=== PATIENT | female | born 1985 | race Caucasian/White ===

== ENCOUNTER 2022-01-18 22:54 | Emergency (ER) | payer BC, SELFPAY ==
[2022-01-18 22:59] VITALS: BP 102/69; PULSE 66; RESP 18; TEMP 36.4; O2SAT 99; BMI 26.8
--- NOTE | 2022-01-19 00:29 | CRLHL7_ITS ---
For Patients: As a result of the Century Cures Act, medical imaging exams and procedure reports are released immediately into your electronic medical record. You may view this report before your referring provider. If you have questions, please contact your health care provider. HISTORY: Bleeding in . Unsure of LMP. COMPARISON: None available of this gestation. TECHNIQUE: Transvaginal ultrasound examination of the early was performed. FINDINGS: A single intrauterine gestational sac is seen without any identifiable structures. A good double decidual sac sign is seen. The mean sac diameter measurement of 0.6 cm gives an estimated gestational age of 5 weeks 1 day with an estimated date of delivery of 09/20/2022. Since a pole cannot be identified, cardiac activity cannot be verified. Consider follow-up ultrasound to confirm viability. A Caesarean section scar is seen in the anterior lower uterine segment. There is no sign of free fluid in the pelvis. A thick-walled left ovarian cyst is present consistent with a corpus luteum cyst of , measuring 1.0 x 1.0 x 0.4 centimeters. The ovaries are normal in size. The right ovary measures 3.2 x 1.1 x 1.5 centimeters. The left ovary measures 2.6 x 1.7 x 1.6 centimeters. IMPRESSION: Single intrauterine gestational sac seen without identifiable parts, with estimated age of 5 weeks 1 day. Consider follow-up ultrasound to confirm viability. Dictated by Yoandy Mcdonald MD @ 01/19/2022 1:36:06 AM (Electronically Signed)
[2022-01-19 00:51] LABS: Basophils Absolute Auto 0.02 K/uL (0.00-0.30); Basophils Percent Auto 0.2 % (0.0-3.0); Eosinophils Absolute Auto 0.16 K/uL (0.00-0.50); Eosinophils Percent Auto 1.8 % (0.0-7.0); Hematocrit 34.5 % (33.0-51.0); Hemoglobin* 11.4 gm/dL (12.0-16.0); Immature Granulocytes Abs Auto 0.01 K/uL (0.00-0.30); Lymphocytes Absolute Auto 3.75 K/uL (0.90-2.90); Lymphocytes Percent Auto 41.4 % (20-44); Mean Corpuscular HGB Conc 33 gm/dL (32-36); Mean Corpuscular Hemoglobin 29 pg (26-34); Mean Corpuscular Volume 87 fL (80-100); Monocytes Percent Auto 5.6 % (0.0-11.0); Neutrophils Absolute Auto 4.61 K/uL (1.7-7.0); Neutrophils Percent Auto 50.9 % (42.0-72.0); Platelet Count* 329 K/uL (140-440); RDW Coefficient of Variation % 13.8 % (11.5-15.5); Red Blood Count 3.97 m/uL (4.00-5.20); White Blood Count* 9.06 K/uL (4.50-11.00)
--- NOTE | 2022-01-19 01:18 | ED_ITS ---
HPI - General Date Seen: 01/19/22 Stated complaint: 8 weeks with bleeding Time Seen by Provider: 01/19/22 00:11 Source: patient and family Mode of arrival: ambulatory Limitations: language barrier (She has a friend interpreting for her.) History of Present Illness HPI Narrative: Patient is eight half weeks by an accurate LMP giving her an EDC of 08/27/2022. She has not seen a doctor for this yet. Today she was in the shower and noticed a trickle of blood down her leg. She has had no abdominal pain. She has passed no clots or tissue. The bleeding has been minimal since it started. She is a . Her PCP is at the [facility] but she does not remember her name. Patient : Yes Expected Date of Delivery: 08/27/22 Number of Weeks : Eight Related Data : 6 Para: 5 Total number of abortions (spontaneous and elective): 2 Home Medications Medication Instructions Recorded Confirmed 01/18/22 folic acid 01/18/22 Allergies Allergy/AdvReac Type Severity Reaction Status Date / Time No Known Drug Allergies Allergy Verified 01/18/22 23:04 PFSH PFS Social History Smoking Status: Never smoker How often do you have a drink containing alcohol: never AUDIT-C Alcohol total score: 0 Non-prescribed substance use: denies use service: No Exam Narrative: Exam Narrative: Lungs are clear. Heart is regular rate rhythm without murmur. Abdomen is soft and nontender. Normal bowel sounds. No organomegaly. Const: Vital Signs, click to edit/add: Vital Signs - 24 hr 01/18/22 22:59 Temperature 97.6 F Pulse Rate [Right Pulse Oximeter] 66 Respiratory Rate 18 Blood Pressure [Le ft Upper Arm] 102/69 Pulse Oximetry 99 Course Course Hospital Course: We were unable to get a quantitative HCG as the machine apparently is broken. The blood will be sent to [employer] and run. Ultrasound shows a gestational sac at closer to five weeks gestation than nine weeks gestation. She did have some light bleeding here in the department. No pain. Vital Signs Vital signs: Initial Vital Signs Temperature 97.6 F 01/18/22 22:59 Temperature Source Temporal Artery Scan 01/18/22 22:59 Pulse Rate 66 01/18/22 22:59 Respiratory Rate 18 01/18/22 22:59 Blood Pressure 102/69 01/18/22 22:59 Blood Pressure Mean 80 01/18/22 22:59 Pulse Oximetry 99 01/18/22 22:59 Oxygen Delivery Method 01/18/22 22:59 Vital Signs Temperature 97.6 F 01/18/22 22:59 Pulse Rate 66 01/18/22 22:59 Respiratory Rate 18 01/18/22 22:59 Blood Pressure 102/69 01/18/22 22:59 Pulse Oximetry 99 01/18/22 22:59 Temperature 97.6 F 01/18/22 22:59 Pulse Rate 66 01/18/22 22:59 Respiratory Rate 18 01/18/22 22:59 Blood Pressure 102/69 01/18/22 22:59 Pulse Oximetry 99 01/18/22 22:59 MDM - OB/Uterine Contractions Lab Data Labs: Lab Results 01/19/22 Range/Units 00:45 Blood Type A Positive Discharge Plan Discharge Clinical Impression: First trimester bleeding Patient Disposition: Home, Self-Care Condition: Stable Additional Instructions: No intercourse. Follow-up in three days for a repeat hCG. You may want to push your ultrasound back a couple of weeks. Return to the ER for heavy bleeding or severe pain. Prescriptions: No Action 0RF folic acid 0RF Stand Alone Forms: [employer] Info Instructions Procedures Perimortem Number of Weeks : Eight
[2022-01-19 02:24] LABS: Slide Review Reflex No
== END 2022-01-19 02:14 | disposition home or self-care (01) ==
PROVIDERS: Emergency Provider Family Medicine
DX: O20.9 Hemorrhage in early pregnancy, unspecified (principal)
CPT/HCPCS: 36415; 76817; 84702; 85025; 86900; 86901; 99283

== ENCOUNTER 2022-01-24 13:59 | Outpatient (CLI) | payer BC, SELFPAY ==
[2022-01-24 20:55] LABS: HCG Quantitative* 34.24 mIU/mL
== END 2022-01-24 14:00 | disposition home or self-care (01) ==
LOC: NFLDREF 14:08
PROVIDERS: Visit Provider Family Medicine
DX: O20.9 Hemorrhage in early pregnancy, unspecified (principal)
CPT/HCPCS: 84702

== ENCOUNTER 2023-01-25 07:51 | Outpatient (CLI) | payer OTHER, SELFPAY ==
--- NOTE | 2023-01-25 08:15 | CRLHL7_ITS ---
For Patients: As a result of the Century Cures Act, medical imaging exams and procedure reports are released immediately into your electronic medical record. You may view this report before your referring provider. If you have questions, please contact your health care provider. INDICATION: , spotting TECHNIQUE: Ultrasound OB pelvis transvaginal. Real-time hathaway-scale imaging of the pelvis was performed. COMPARISON: None FINDINGS: The uterus is anteverted with an intrauterine gestational sac. An embryo is identified which has a crown-rump length of 6 millimeters which corresponds to 6 weeks 3 days. No cardiac activity seen. Maternal right ovary unremarkable. Maternal left ovary contains a corpus luteum measuring 1.2 centimeters. IMPRESSION: Single intrauterine gestation with a crown-rump length of 6 millimeters without cardiac activity. These findings are suspicious for although not diagnostic of failure. Recommend correlation with serial quantitative beta HCG and as clinically appropriate follow-up ultrasound in 7-10 days to reassess viability. Dictated by Indra Petty MD @ 01/25/2023 9:52:08 AM (Electronically Signed)
== END 2023-01-25 07:52 | disposition home or self-care (01) ==
LOC: US 07:54
PROVIDERS: Visit Provider Registered Nurse
DX: O20.9 Hemorrhage in early pregnancy, unspecified (principal)
CPT/HCPCS: 76817

== ENCOUNTER 2023-03-03 10:35 | Outpatient (CLI) | payer OTHER, SELFPAY | END 2023-03-03 10:36 | disposition home or self-care (01) | PROVIDERS: Visit Provider Obstetrics & Gynecology | DX: N96 Recurrent pregnancy loss (principal) | CPT/HCPCS: 82232; 83001; 84146; 84439; 84443; 85610; 85613; 85730; 86147; 88262 ==

== ENCOUNTER 2023-05-31 15:22 | Outpatient (CLI) | payer OTHER, SELFPAY | END 2023-05-31 15:23 | disposition home or self-care (01) | PROVIDERS: PCP Family Medicine; Visit Provider Family Medicine | DX: D64.9 Anemia, unspecified (principal); R53.83 Other fatigue | CPT/HCPCS: 80053; 80061; 82607; 82728; 82977; 84443 ==

== ENCOUNTER 2023-06-02 08:06 | Outpatient (CLI) | payer OTHER, SELFPAY | END 2023-06-02 08:07 | disposition home or self-care (01) | LOC: NFLDREF 08:08 | PROVIDERS: PCP Family Medicine; Visit Provider Family Medicine | DX: R74.8 Abnormal levels of other serum enzymes (principal) | CPT/HCPCS: 86803; 87340 ==

== ENCOUNTER 2023-12-13 07:07 | Outpatient (CLI) | payer OTHER, SELFPAY ==
--- OUTSIDE RECORDS SUMMARY | 2023-12-13 07:10 | XMS_ITS | Data Portability ---
Author Organization CLAUDE - Olivia coleman [facility] Address [address] [place] [address] [place] [address] Assessment No assessment recorded. Plan of Treatment Reminders Order Date Submit Date Provider Last Modified By Organization Details Last Modified Time Details Appointments None record ed. Lab pap, LB + HR HPV 021 04/21/20 21 CYNDI Not available 13:51:58 Referral None record ed. Procedures None record ed. Surgeries None record ed. Imaging None record ed. Medication Orders None record ed. Patient TargetsNo targets recorded. 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 Referral for Abnormal cervical Papanicolaou smear Referral to complete JUNIE paperwork prior to referral to [facility] for colposcopy Referring Physician: Rahda [facility], Encounter Date: 05/12/2021 Consultant Dietitian Referral for Ab normal cervical Papanicolaou smear JUNIE Referral to [facility] for Colposcopy Gibraltarian speaking Referring Physician: Radha [facility], Encounter Date: 05/12/2021 Results Created Date Observation Date Name Description Value Unit Range Abnormal Flag LastModifiedBy Organization Detail LastModifiedTime 04/21/20 21 04/21/2021 pap, LB + HR HPV HPV type 16 positi ve negati ve abnormal Not Available [facility] [address], [place], [address], 04/26/2021 13:08:30 04/21/2004/21/2021 pap, LB + HR HPV cytology unsati sfacto ry abnormal Not Available Not Available 05/11/20 14:20:46 Result Notes None recorded. Problems Name Status Onset Date Resolution Date Notes Provider Name and Address Organization Details Recorded Time Polyp of cervix Active Radha Conway NP [address] [place], [address], [facility] [employer] 04/21/2021 18:31:23 Problem Notes None recorded. Procedures Surgical History Date Name Laterality Status Provider Name and Address Organization Details Recorded Time IUD Removal completed Radha Conway NP [address] [place], [address], [facility] 04/21/2021 17:32:55 Imaging Results None recorded. Procedure Notes None recorded. Medical Equipment None Reported. Allergies No known drug allergies Medications Not known to be on any medication Vitals Date Recorded Body weight Provider Name an d Address Organization Details Last Updated DateTime 04/06/2021 00622.71 g Phill Lockwood [address] [place], [address] [employer] [facility] 04/06/2021 19:32:47 Date Recorded Body height Body mass index (BMI) Body weight Heart rate Systolic blood pressure Diastolic blood pressure Provider Name and Address Organization Details Last Updated DateTime 1 148.59 cm 23.7 kg/m2 24566.2 8 g 78 /min 104 mm[Hg] 67 mm[Hg] Rdaha Conway NP [address] [place], [address], [facility] [employer] 14:45:32 Social History None recorded. Functional Status None recorded. Mental Status None recorded. Family History Relationship Description Onset Age of this Age Resolved Age Notes Mother Hypertensive disorder Notes:Son with heart conditi on Medical History No medical history recorded. Gynecological HistoryNo gynecological history recorded. Obstetrics History GPAL:G 4 P 3 0 1 3 Type Value Full Term 3 Spontaneous 1 Living 3 Total 4 Past Encounters Encounter ID Performer Location Encounter Start Date Encounter Closed Date Diagnosis/Indication Diagnosis SNOMED-CT Code [id number] Tulio Jimenez MD [facility] [address] [place] [address] 04/06/2021 18:05:08 04/06/2021 19:07:53 Pruritic disorder [id number] Radha Conway NP [facility] [address] [place] [address] 04/21/2021 14:36:36 04/21/2021 15:22:32 Irregular periods 20795120 Polyp of cervix 18119528 Removal of intrauterine device 26032827 Screening for malignant neoplasm of cervix 341572636 Health Concerns Section Related Observation LastModified by Organization Detai ls LastModified Time None Recorded Concern Status LastModified by Organization Details LastModified Time None Recorded Advance Directives Directive None Recorded Payers Encounter Date Sequence Insurance Name Policy Number Policy Ch Covered Member ID Ch Member ID Guarantor Name 04/21/2021 SLIDING FEE SCHEDULE - DISCOUNT Jayde Lindsay 04/06/2021 SLIDING FEE SCHEDULE - DISCOUNT Jayde Lindsay Notes Date Note Type Note Provider Name and Address Organization Details Recorded Time 04/06/2021 text/html HPI Notes: son has been treated for scabies, itching hands, fingers, legs, NKA, not PG Tulio Jimenez MD [address] [place], [address], [facility] [employer] [facility] 04/06/2021 19:36:48 04/21/2021 text/html HPI Notes: 36 y.o. presents for removal of Copper IUD placed in [facility] 02/2016 Desires removal due to 6-month history of irregular periods and increased cramping Not currently sexually active, does not desire another form of contraception. Would not mind in the next year. Plans to get 11/2021 LMP today Last pap 01/04/2018 NILM - due today, patient accepts pap No history of abnormal pap smears Denies fever, chills, pelvic pain, change in vaginal discharge, itching, odor, irritation, or concern for infection. Denies weight changes, fatigue, excessive thirst, headache, dry skin. Radha Conway NP [address] [place], [address], [facility] 04/21/2021 18:31:28 OBGyn Episode No OBEpisode recorded.
--- NOTE | 2023-12-13 07:15 | CRLHL7_ITS ---
For Patients: As a result of the Cures Act, medical imaging exams and procedure reports are released immediately into your electronic medical record. You may view this report before your referring provider. If you have questions, please contact your health care provider. INDICATION: . Evaluate viability and dating. TECHNIQUE: Obstetrical ultrasound with transvaginal imaging. COMPARISON: No prior. FINDINGS: Living single intrauterine gestation with heart rate 173 beats per minute. [place]-rump length is 2.3 centimeters which correlates with a 9 week, 0 day gestation. FAUSTO based on ultrasound measurements is 07/17/2024. This compares to a clinical age of 7 weeks 6 days. The FAUSTO based on LMP would be 07/25/2024. Is the LMP accurate? Normal yolk sac. 2.4 x 1.9 x 2.0 centimeter subchorionic bleed is present. No adnexal mass or pelvic free fluid. IMPRESSION: 1. Living single intrauterine gestation with calculated gestational age based on ultrasound measurements of 9 weeks, 0 days. This compares to a clinical age based on LMP of 7 weeks, 6 days. Is the LMP accurate? 2. Adjacent 2.4 x 1.9 x 2.0 centimeter subchorionic bleed. 3. No adnexal mass or pelvic free fluid. Dictated by Michael Duarte MD @ 12/14/2023 8:05:30 AM (Electronically Signed)
== END 2023-12-13 07:08 | disposition home or self-care (01) ==
LOC: US 07:09
PROVIDERS: PCP Family Medicine; Visit Provider Registered Nurse
DX: Z34.91 Encounter for supervision of normal pregnancy, unspecified, first trimester (principal); O20.9 Hemorrhage in early pregnancy, unspecified; Z3A.01 Less than 8 weeks gestation of pregnancy
CPT/HCPCS: 76817; 86703; 86706; 86803; 86850; 86900; 86901; 87086; 87340; 87491; 87591; T1013

== ENCOUNTER 2023-12-13 08:40 | Outpatient (CLI) | payer OTHER, SELFPAY ==
[2023-12-13 13:23] LABS: Chlamydia DNA Amplified* NOT DETECTED (No Detected); GC DNA Amplified* NOT DETECTED (No Detected)
== END 2023-12-13 08:41 | disposition home or self-care (01) ==
PROVIDERS: PCP Family Medicine; Visit Provider Registered Nurse
DX: Z34.81 Encounter for supervision of other normal pregnancy, first trimester (principal)
CPT/HCPCS: 86592; 86703; 86704; 86706; 86762; 86787; 86803; 86850; 86900; 86901; 87086; 87340; 87491; 87591

== ENCOUNTER 2024-02-21 11:30 | Outpatient (CLI) | payer OTHER, SELFPAY ==
--- OUTSIDE RECORDS SUMMARY | 2024-02-21 11:32 | XMS_ITS | Data Portability ---
Author Organization CLAUDE - Olivia coleman [facility] Address [address] [place] [address] [place] [address] Assessment No assessment recorded. Plan of Treatment Reminders Order Date Submit Date Provider Last Modified By Organization Details Last Modified Time Details Appointments None record ed. Lab pap, LB + HR HPV 021 04/21/20 CYNDI Not available 13:51:58 Referral None record ed. Procedures None record ed. Surgeries None record ed. Imaging None record ed. Medication Orders None record ed. Patient TargetsNo targets recorded. 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 Referral for Abnormal cervical Papanicolaou smear Referral to complete JUNIE paperwork prior to referral to [facility] for colposcopy Referring Physician: Radha [facility], Encounter Date: 05/12/2021 Outreach Specialist Referral for Ab normal cervical Papanicolaou smear JUNIE Referral to [facility] for Colposcopy German speaking Referring Physician: Radha [facility], Encounter Date: 05/12/2021 Results Created Date Observation Date Name Description Value Unit Range Abnormal Flag LastModifiedBy Organization Detail LastModifiedTime 04/21/20 21 04/21/2021 pap, LB + HR HPV HPV type 16 positi ve negati ve abnormal Not Available [facility] [address], [place], [address], 04/26/2021 13:08:30 04/21/2004/21/2021 pap, LB + HR HPV cytology unsati sfacto ry abnormal Not Available Not Available 05/11/20 14:20:46 Result Notes None recorded. Problems Name Status Onset Date Resolution Date Notes Provider Name and Address Organization Details Recorded Time Polyp of cervix Active Radha Conway NP [address] [place], [address], [facility] [employer] 04/21/2021 18:31:23 Problem Notes None recorded. Procedures Surgical History Date Name Laterality Status Provider Name and Address Organization Details Recorded Time IUD Removal completed Radha Conway NP [address] [place], [address], [facility] 04/21/2021 17:32:55 Imaging Results None recorded. Procedure Notes None recorded. Medical Equipment None Reported. Allergies No known drug allergies Medications Not known to be on any medication Vitals Date Recorded Body weight Provider Name an d Address Organization Details Last Updated DateTime 04/06/2021 22940.71 g Phill Lockwood [address] [place], [address] [email or web address] [facility] 04/06/2021 19:32:47 Date Recorded Body height Body mass index (BMI) Body weight Heart rate Systolic blood pressure Diastolic blood pressure Provider Name and Address Organization Details Last Updated DateTime 1 148.59 cm 23.7 kg/m2 58974.2 8 g 78 /min 104 mm[Hg] 67 mm[Hg] Radha Conway NP [address] [place], [address], [facility] [employer] 14:45:32 Social History None recorded. Functional Status [...] Encounter Closed Date Diagnosis/Indication Diagnosis SNOMED-CT Code [id number] Tulio Jimenez MD [facility] [address] [place] [address] 04/06/2021 18:05:08 04/06/2021 19:07:53 Pruritic disorder [id number] Radha Conway NP [facility] [address] [place] [address] 04/21/2021 14:36:36 04/21/2021 15:22:32 Irregular periods 22485876 Polyp of cervix 11279745 Removal of intrauterine device 45019436 Screening for malignant neoplasm of cervix 998636289 Health Concerns Section Related Observation LastModified by Organization Detai ls LastModified Time None Recorded Concern Status LastModified by Organization Details LastModified Time None Recorded Advance Directives Directive None Recorded Payers Encounter Date Sequence Insurance Name Policy Number Policy Ch Covered Member ID Ch Member ID Guarantor Name 04/06/2021 SLIDING FEE SCHEDULE - DISCOUNT Jayde Lindsay 04/21/2021 SLIDING FEE SCHEDULE - DISCOUNT Jayde Lindsay Notes Date Note Type Note Provider Name and Address Organization Details Recorded Time 04/06/2021 text/html HPI Notes: son has been treated for scabies, itching hands, fingers, legs, NKA, not PG Tulio Jimenez MD [address] [place], [address], [facility] [employer] [facility] 04/06/2021 19:36:48 04/21/2021 text/html HPI Notes: 36 y.o. presents for removal of Copper IUD placed in [facility] 02/2016 Desires removal due to 6-month history [...] headache, dry skin. Radha Conway NP [address] [place], [address], [facility] 04/21/2021 18:31:28 OBGyn Episode No OBEpisode recorded.
== END 2024-02-21 11:31 | disposition home or self-care (01) ==
LOC: US 11:30
PROVIDERS: PCP Family Medicine; Visit Provider Obstetrics & Gynecology
DX: O09.522 Supervision of elderly multigravida, second trimester (principal); Z3A.27 27 weeks gestation of pregnancy
CPT/HCPCS: 76811; 76817; 87086; 87491; 87591; T1013

== ENCOUNTER 2024-03-06 13:26 | Outpatient (CLI) | payer OTHER, BC, SELFPAY ==
--- OUTSIDE RECORDS SUMMARY | 2024-03-06 13:28 | XMS_ITS | Encounter Summary ---
Author Organization Anna Address [facility] [place] [address] Care Team Providers Care Production Lead Name Role Phone Mattie Vasques MD Primary Care Provider + Encounter Details Date Type Department Care Team (Latest Contact Info) Description 02/26/2024 Travel Social History Tobacco Use Types Packs/Day Years Used Date Smoking Tobacco: Never Assessed Estimated Date of Delivery Comme nts Yes 07/17/2024 Based on Ultraso und Sex and Gender Information Value Date Recorded Sex Assigned at Not on file Gender Identity Not on file Sexual Orientation Not on file documented as of this encounter Plan of Treatment Upcoming Encounters Date Type Department Care Team (Late st Contact Info) Description 03/12/2024 3:30 PM CDT Appointment [facility] Maternal Medicine [facility] [address] [place] [phone] Amilcar Dickerson MD [address] [place], [place] [address] 03/12/2024 4:00 PM CDT Office Visit [facility] Maternal Medicine [facility] [address] [place] [phone] Amilcar Dickerson MD [address] [place], [place] [address] documented as of this encounter Visit Diagnoses Not on filedocumented in this encounter Care Teams Production Lead Relationship Specialty Start Date End Date Mattie Vasques MD [facility] & [address] [address] PCP - General Family Medicine 02/21/24 documented as of this encounter
--- OUTSIDE RECORDS SUMMARY | 2024-03-06 13:28 | XMS_ITS | Referral Summary ---
Author Organization [facility] Address [address] [place] [address] Care Team Providers Care Configuration Management Consultant Name Role Phone Mattie Vasques MD Primary Care Provider + Encounters Date Type Department Care Team Description 02/26/2024 Travel 02/26/2024 9:15 AM CDT Office Visit [facility] Maternal Medicine [address] [place] [address] Amilcar Dickerson MD Short cervix affecting (Primary Dx) 02/26/2024 8:45 AM CDT - 02/26/2024 11:59 PM CDT Hospital Encounter [facility] Maternal Medicine [facility] [address] [place] [phone] Amilcar Dickerson MD related condition, antepartum Discharge Disposition: Home or Self Care 02/22/2024 PRE VISIT [facility] Maternal Medicine [address] [place] [address] Dyan Ch RN Ultrasound (TV- short cervix on outside ultrasound) 02/21/2024 Transcribe Orders [facility] Maternal Medicine [facility] [address] [facility] [address] [place] [address] Anna William MD related condition, antepartum (Primary Dx) from Last 3 Months Social History Tobacco Use Types Packs/Day Years Used Date Smoking Tobacco: Never Assessed Estimated Date of Delivery Comme nts Yes 07/17/2024 Based on Ultraso und Sex and Gender Information Value Date Recorded Sex Assigned at Not on file Gender Identity Not on file Sexual Orientation Not on file Plan of Treatment Upcoming Encounters Date Type Department Care Team (Late st Contact Info) Description 03/12/2024 3:30 PM CDT Appointment [facility] Maternal Medicine [facility] [address] [place] [address] Amilcar Dickerson MD [address] [place], [place] [phone] 03/12/2024 4:00 PM CDT Office Visit [facility] Maternal Medicine [facility] [address] [facility] [address] [place] [address] Amilcar Dickerson MD [address] [place] [address] Procedures Procedure Name Priority Date/Time Associated Diagnosis Comments [facility] US OB TRANSVAGINAL Routine 02/26/2024 9:43 AM CDT related condition, antepartum from Last 3 Months Results * [facility] US OB Transvaginal (02/26/2024 9:43 AM CDT) Anatomical Region Laterality Modality Ultrasound 02/26/2024 8:56 AM CDT Impressions 02/26/2024 9:53 AM CDT IMPRESSION ----- This is an active single fetus with behavior appropriate for gestational age at 19w5d, with history of 3 term births, 4 first trimester Sab and one second trimester loss after trauma and bleeding. Normal amniotic fluid volume is measured. Transabdominal and transvaginal views of the cervix and the cervical length were obtained. Narrative 02/26/2024 9:53 AM CDT ?Cx TV ----- Pat. Name: JOSE SMITH ? Study Date: ??02/26/2024 8:56am Pat. NO: ??[id number] ?Referring ??MD: ANNA WILLIAM Site: ? Pyrotechnician: Jillian Dias RDMS : ??1985 ?Age: ?? 38 ----- INDICATION ----- Short cervix METHOD ----- Transabdominal and transvaginal ultrasound examination. View: Sufficient. ----- Burrows . Number of fetuses: 1 DATING ----- ? Date ?Details ?Gest. age ?FAUSTO LMP ?10/19/2023 ? 18 w + 4 d ? 07/25/2024 Previous U/S ?12/13/2023 ?GA, GA 9 w + 0 d ? 19 w + 5 d ? 07/17/2024 Assigned dating ?based on ultrasound (GA), selected on 02/26/2024 ?19 w + 5 d ? 07/17/2024 GENERAL EVALUATION ----- Cardiac activity present. FHR 135 bpm. movements: visualized. Presentation: tranverse with head to maternal left. Placenta: Anterior Umbilical cord: previously studied Amniotic fluid: Amount of AF: normal. MVP 5.4 cm MATERNAL STRUCTURES ----- Cervix ?Normal ? Appearance: Appears closed. ? Approach - Transvaginal: Cervical length 16.9 mm RECOMMENDATION ----- Cervical length measurement among women without a history of delivery is a not a strong predictor of recurrent delivery. The finding of a cervix <2.5 cm long is concerning but has low positive predictive value for the risk of delivery. Ultrasound cervical length measurements should always be correlated with clinical findings. Management should be based on both US and clinical findings. This is cited verbatim from the ACOG Guidelines and is only used to determine the frequency of cervical length surveillance. I have applied this to all cases as it constitutes the best recommendations available to determine the frequency of cervical length surveillance: ?Most guidelines do not specify timing or schedule and there are no adequate data to define the optimal timing and frequency of assessment, but cervical length measurements are usually initiated at about 16 0/7 weeks of gestation and repeated every 1?4 weeks, depending on individual patient risks and findings, until 24 0/7 weeks of gestation.? Recommend weekly CL assessment until 24 0/7 weeks with [facility] in 1 week and at [facility] in 2 weeks. Continue with vaginal progesterone. Procedure Note Amilcar Dickerson MD - 02/27/2024 Cx TV ----- Pat. Name: JOSE SMITH Study Date: 02/26/2024 8:56am Pat. NO: [id number] Referring MD: ANNA WILLIAM Site: Pyrotechnician: Jillian Dias RDMS : 1985 Age: 38 ----- INDICATION ----- Short cervix METHOD ----- Transabdominal and transvaginal ultrasound examination. View:Sufficient. ----- [place] . Number of fetuses: 1 DATING ----- DateDetailsGest. age FAUSTO LMP w + 4 d 07/25/2024 Previous U/S 12/13/2023 GA, GA9 w + 0 d19 w + 5 d 07/17/2024 Assigned dating based on ultrasound (GA), selected on02/26/2024 19w + 5 d 07/17/2024 GENERAL EVALUATION ----- Cardiac activity present. FHR 135 bpm. movements: visualized.Presentation: tranverse with head to maternal left. Placenta: Anterior Umbilical cord: previously studied Amniotic fluid: Amount of AF: normal. MVP 5.4 cm MATERNAL STRUCTURES ----- Cervix Normal Appearance: Appears closed. Approach - Transvaginal:Cervical length 16.9 mm RECOMMENDATION ----- Cervical length measurement among women without a history of pretermdelivery is a not a strong predictor of recurrent delivery. Thefinding of a cervix <2.5 cm long is concerning but has low positive predictive value for the risk ofpreterm delivery. Ultrasound cervical length measurements should always becorrelated with clinical findings. Management should be based on both US and clinical findings. This is cited verbatim from the ACOG Guidelines and is only used todetermine the frequency of cervical length surveillance. I have appliedthis to all cases as it constitutes the best recommendations available to determine the frequency of cervicallength surveillance: ?Most guidelines do not specify timing or scheduleand there are no adequate data to define the optimal timing and frequency of assessment, butcervical length measurements are usually initiated at about 16 0/7 weeksof gestation and repeated every 1?4 weeks, depending on individual patient risks and findings, until24 0/7 weeks of gestation.? Recommend weekly CL [facility] 0/[facility] 2 weeks. Continue with vaginal progesterone. IMPRESSION ----- This is an active single fetus with behavior appropriate for gestationalage at 19w5d, with history of 3 term births, 4 first trimester Sab and onesecond trimester loss after trauma and bleeding. Normal amniotic fluid volume is measured. Transabdominal and transvaginal views of the cervix and the cervicallength were obtained. nAna William MD [facility] US ORDERAB LES from Last 3 Months Care Teams Configuration Management Consultant Relationship Specialty Start Date End Date Mattie Vasques MD [facility] & [address] [address] PCP - General Family Medicine 02/21/24
--- OUTSIDE RECORDS SUMMARY | 2024-03-06 13:28 | XMS_ITS | Encounter Summary ---
Author Organization [facility] Address Formerly [facility] [place] [address] Care Team Providers Care Circulation Tender Name Role Phone Mattie Vasques MD Primary Care Provider + Reason for Visit * Reason Comments Ultrasound TV- short cervix on outside ultrasound Encounter Details Date Type Department Care Team (Late st Contact Info) Description 02/22/2024 PRE VISIT [facility] Maternal Medicine [facility] [address] [place], [place] [phone] Dyan Ch, RN Ultrasound (TV- short cervix on outside ultrasound) Social History Tobacco Use Types Packs/Day Years Used Date Smoking Tobacco: Never Assessed Estimated Date of Delivery Comme nts Yes 07/17/2024 Based on Ultraso und Sex and Gender Information Value Date Recorded Sex Assigned at Not on file Gender Identity Not on file Sexual Orientation Not on file documented as of this encounter Plan of Treatment Upcoming Encounters Date Type Department Care Team ([facility] Contact Info) Description 03/12/2024 3:30 PM CDT Appointment [facility] Maternal Medicine [facility] [address] [place] [phone] Amilcar Dickerson MD [address] [place], [place] [address] 03/12/2024 4:00 PM CDT Office Visit [facility] Maternal Medicine [facility] [address] [place] [phone] Amilcar Dickerson MD [address] [place] [address] documented as of this encounter Visit Diagnoses Not on filedocumented in this encounter Care Teams Circulation Tender Relationship Specialty Start Date End Date Mattie Vasques MD [facility] & [address] [address] PCP - General Family Medicine 02/21/24 documented as of this encounter
--- OUTSIDE RECORDS SUMMARY | 2024-03-06 13:28 | XMS_ITS | Encounter Summary ---
Author Organization [facility] Address [address] [place] [address] Care Team Providers Care Demand Generation Manager Name Role Phone Mattie Vasques MD Primary Care Provider + Reason for Referral * Diagnostic Imaging Ultrasound (Routine) - Pending Review Specialty Diagnoses / Procedures Referred By Chele rm Referred To Contact Radiology. Diagnoses Short cervix affecting Procedures [facility] US OB Transvaginal Amilcar Dickerson MD [address] [address] Referral ID Status Reason Start Date Expiration Date V isits Requested Visits Authorized [id number] Pending Review 02/26/2024 02/25/2025 1 1 Reason for Visit * Reason Comments Ultrasound TV- short cervix on outside ultrasound Encounter Details Date Type Department Care Team (Late st Contact Info) Description 02/26/2024 9:15 AM CDT Office Visit [facility] M[facility] Medicine [facility] [place] [address] [place] [address] Amilcar Dickerson MD [address] [facility] [address] [place] [address] Short cervix affecting (Primary Dx) Social History Tobacco Use Types Packs/Day Years Used Date Smoking Tobacco: Never Assessed Estimated Date of Delivery Comme nts Yes 07/17/2024 Based on Ultraso und Sex and Gender Information Value Date Recorded Sex Assigned at Not on file Gender Identity Not on file Sexual Orientation Not on file documented as of this encounter Progress Notes * Amilcar Dickerson MD - 02/26/2024 9:15 AM CDT Please refer to ultrasound report under 'Imaging' Studies of 'Chart Review' tabs. Amilcar Dickerson M.D. documented in this encounter Nursing Notes * Dyan Ch, RN - 02/26/2024 9:15 AM CDT Ipad hand suture winder used for [facility] appt. Pt at [facility] for ultrasound- see detailed report under imaging tab. Pt reports positive movement, denies bleeding, cramping, loss of fluid or other concerns. SBAR given to MD. Per Dr. Dickerson- pt to be seen by M at [facility] [place] in 1 and 3 weeks and at [facility] in 2 weeks. Bulk Sausage Casing Tier Off called [facility] and spoke with Nila who will await orders from referring physician and call pt to schedule. Order placed for TV ultrasound in 2 weeks and pt instructed by MD to stop at desk and schedule documented in this encounter Plan of Treatment Upcoming Encounters Date Type Department Care Team (Late st Contact Info) Description 03/12/2024 3:30 PM CDT Appointment [facility] Maternal Medicine [facility] [address] [facility] [address] [place] [address] Amilcar Dickerson MD [address] [place], [place] [address] 03/12/2024 4:00 PM CDT Office Visit [facility] Maternal Medicine [facility] [address] [facility] [address] [place] [phone] Amilcar Dickerson MD [address] [place] [address] Scheduled Orders Name Type Priority Associated Diagnoses Orde r Schedule MFM US OB Transvaginal Imaging Routine Short cervix affecting Expected: 03/11/2024 (Approximate), Expires: 12/26/2024 documented as of this encounter Visit Diagnoses Diagnosis Short cervix affecting - Primary Cervical shortening, unspecified as to episode of care or not applicable documented in this encounter Care Teams Demand Generation Manager Relationship Specialty Start Date End Date Mattie Vasques MD [facility] & [address] [address] PCP - General Family Medicine 02/21/24 documented as of this encounter
--- OUTSIDE RECORDS SUMMARY | 2024-03-06 13:28 | XMS_ITS | Clinical Summary ---
Author Organization [facility] Address [address] [place] [address] Care Team Providers Care Epic Anesthesia Analyst Name Role Phone Mattie Vasques MD Primary Care Provider + Encounters Date Type Department Care Team Description 02/26/2024 9:15 AM CDT Office Visit [facility] Maternal Medicine [facility] [address] [place] [address] Amilcar Dickerson MD Short cervix affecting (Primary Dx) 02/26/2024 8:45 AM CDT - 02/26/2024 11:59 PM CDT Hospital Encounter [facility] Maternal Medicine [facility] [address] [place] [phone] Amilcar Dickerson MD related condition, antepartum Discharge Disposition: Home or Self Care 02/26/2024 Travel 02/22/2024 PRE VISIT [facility] Maternal Medicine [address] [place] [address] Dyan Ch RN Ultrasound (TV- short cervix on outside ultrasound) 02/21/2024 Transcribe Orders [facility] Maternal Medicine [facility] [address] [facility] [address] [place] [address] Anna William MD related condition, [...] Info) Description 03/12/2024 3:30 PM CDT Appointment [facility] Maternal Medicine [facility] [address] [facility] [address] [place] [phone] Amilcar Dickerson MD [address] [place], [place] [phone] 03/12/2024 4:00 PM CDT Office Visit [facility] Medicine [facility] [address] [facility] [address] [place] [address] Amilcar Dickerson MD [address] [place] [address] Health Maintenance Due Date Last Done Comments ADVANCE CARE PLANNING 1985 ANNUAL REVIEW OF HM ORDERS 1985 GLUCOSE 1985 YEARLY PREVENTIVE VISIT 1985 HIV SCREENING 2000 HEPATITIS C SCREENING 2003 HEPATITIS B IMMUNIZATION (1 of 3 - 19+ 3-dose series) 2004 PAP 2006 DTAP/TDAP/TD IMMUNIZATION (1 - Tdap) 2010 COVID-19 Vaccine (1 - 2022-2 4 season) 2023 PHQ-2 (once per calendar year) 2023 MATERNAL SCREENING DISCUSSION 12/20/2023 INFLUENZA VACCINE (#1) 2024 OBGCT (OB) 03/27/2024 RSV VACCINE ( & 60+ ) (1 - Risk 1-dose series) 05/22/2024 HPV IMMUNIZATION Aged Out No longer e ligible based on patient's age to complete this topic MENINGITIS IMMUNIZATION Aged Out No l onger eligible based on patient's age to complete this topic Pneumococcal Vaccine: Pediat rics (0 to 5 Years) and At-Risk Patients (6 to 64 Years) Aged Out No longer eligi ble based on patient's age to complete this topic RSV MONOCLONAL ANTIBODY Aged Out No l onger eligible based on patient's age to complete this topic Procedures Procedure Name Priority Date/Time Associated Diagnosis Comments [facility] US OB TRANSVAGINAL Routine 02/26/2024 9:43 AM CDT related condition, antepartum from Last 3 Months Results * [facility] US OB Transvaginal (02/26/2024 9:43 AM [...] ? Study Date: ??02/26/2024 8:56am Pat. NO: ??[id number] ?Referring ??MD: ANNA WILLIAM Site: ? Spinneret Cleaner: Jillian Dias RDMS : ??1985 ?Age: ?? [...] CL assessment until 24 0/7 weeks with [facility] in 1 week and at [facility] in 2 weeks. Continue with vaginal progesterone. Procedure Note Amilcar Dickerson MD - 02/27/2024 Cx TV ----- Pat. Name: JOSE SMITH Study Date: 02/26/2024 8:56am Pat. NO: [id number] Referring MD: ANNA WILLIAM Site: Spinneret Cleaner: Jillian Dias RDMS : 1985 Age: 38 [...] CL [facility] 2 weeks. Continue with vaginal progesterone. IMPRESSION ----- This is an active single fetus with behavior appropriate for gestationalage at 19w5d, with history of 3 term births, 4 first trimester Sab and onesecond trimester loss after trauma and bleeding. Normal amniotic fluid volume is measured. Transabdominal and transvaginal views of the cervix and the cervicallength were obtained. Anna William MD [facility] ORDERAB LES from Last 3 Months Care Teams Epic Anesthesia Analyst Relationship Specialty Start Date End Date Mattie Vasques MD [facility] & [address] [address] PCP - General Family Medicine 02/21/24
--- OUTSIDE RECORDS SUMMARY | 2024-03-06 13:28 | XMS_ITS | Encounter Summary ---
Author Organization [facility] Address [address] [place] [address] Care Team Providers Care High School Director Name Role Phone Mattie Vasques MD Primary Care Provider + Reason for Referral * Diagnostic Imaging Ultrasound (Routine) - Pending Review Specialty Diagnoses / Procedures Referred By Contac t Referred To Contact Radiology. Diagnoses related condition, antepartum Procedures [facility] US OB Transvaginal Anna William MD [facility] [address] [place] [address] Referral ID Status Reason Start Date Expiration Date V isits Requested Visits Authorized [id number] Pending Review 02/21/2024 02/20/2025 1 1 Reason for Visit * Diagnostic Imaging Ultrasound (Routine) - Pending Review Specialty Diagnoses / Procedures Referred By Contac t Referred To Contact Radiology. Diagnoses related condition, antepartum Procedures [facility] US OB Transvaginal Anna William MD [facility] [address] [place] [address] Referral ID Status Reason Start Date Expiration Date V isits Requested Visits Authorized [id number] Pending Review 02/21/2024 02/20/2025 1 1 Encounter Details Date Type Department Care Team (Latest Contact Info) Description 02/26/2024 8:45 AM CDT - 02/26/2024 11:59 PM CDT Hospital Encounter [facility] Maternal Medicine [facility] [place] [address] [place] [address] Amilcar Dickerson MD [address] [facility] [address] [place], [place] [phone] related condition, antepartum Discharge Disposition: Home or Self Care Social History Tobacco Use Types Packs/Day Years [...] Info) Description 03/12/2024 3:30 PM CDT Appointment [facility] Maternal Medicine [facility] [address] [facility] [address] [place] [phone] Amilcar Dickerson MD [address] [address] 03/12/2024 4:00 PM CDT Office Visit [facility] Maternal Medicine [facility] [address] [facility] [address] [place] [phone] Amilcar Dickerson MD [address] [address] documented as of this encounter Procedures Procedure Name Priority Date/Time Associated Diagnosis Comments [facility] US OB TRANSVAGINAL Routine 02/26/2024 9:43 AM CDT related condition, antepartum documented in this encounter Results * [facility] US OB Transvaginal (02/26/2024 9:43 AM [...] ? Study Date: ??02/26/2024 8:56am Pat. NO: ??[id number] ?Referring ??MD: ANNA WILLIAM Site: ? Food Beverage Attendant: Jillian Dias RDMS : ??1985 ?Age: ?? [...] CL assessment until 24 0/7 weeks with [facility] in 1 week and at [facility] in 2 weeks. Continue with vaginal progesterone. Procedure Note Amilcar Dickerson MD - 02/27/2024 Cx TV ----- Pat. Name: JOSE SMITH Study Date: 02/26/2024 8:56am Pat. NO: [id number] Referring MD: ANNA WILLIAM Site: Food Beverage Attendant: Jillianalejandro Dias RDMS : 1985 Age: 38 ----- [...] CL assessment until 24 0/7 weeks with [facility] in 1week and at [facility] in 2 weeks. Continue with vaginal progesterone. IMPRESSION ----- This is an active single fetus with behavior appropriate for gestationalage at 19w5d, with history of 3 term births, 4 first trimester Sab and onesecond trimester loss after trauma and bleeding. Normal amniotic fluid volume is measured. Transabdominal and transvaginal views of the cervix and the cervicallength were obtained. Anna William MD [facility] US ORDERAB LES documented in this encounter Visit Diagnoses Diagnosis related condition, antepartum documented in this encounter Care Teams High School Director Relationship Specialty Start Date End Date Mattie Vasques MD [facility] & [place] [id number] PCP - General Family Medicine 02/21/24 documented as of this encounter
--- OUTSIDE RECORDS SUMMARY | 2024-03-06 13:28 | XMS_ITS | Encounter Summary ---
Author Organization [place] Address [address] [place] [address] Care Team Providers Care Airline Flight Attendant Name Role Phone Mattie Vasques MD Primary Care Provider + Reason for Referral * Diagnostic Imaging Ultrasound (Routine) - Pending Review Specialty Diagnoses / Procedures Referred By Contac t Referred To Contact Radiology. Diagnoses related condition, antepartum Procedures [facility] US OB Transvaginal Anna William MD [facility] [address] [place] [address] Referral ID Status Reason Start Date Expiration Date V isits Requested Visits Authorized [id number] Pending Review 02/21/2024 02/20/2025 1 1 * Consultation (Routine: Next available opening) - Pending Review Specialty Diagnoses / Procedures Referred By Contac t Referred To Contact Diagnoses related condition, antepartum Anna William MD [facility] [address] [place] [address] Rh Maternal Med [address] [facility] [address] [place] [address] Referral ID Status Reason Start Date Expiration Date V isits Requested Visits Authorized [id number] Pending Review 02/21/2024 02/20/2025 1 1 Question Answer Preferred Location: [facility] [place] 07/17/2024 Ultrasound MFM Recommendation US PROC NONE MFM Issue OTHER (enter details in Comments) - cervical shortening MFM Consultation (unrelated to Ultrasound findings): No Inflammatory Bowel Disease Clinic: Joint MFM and GI Consultation: No Chronic Kidney Disease: Joint MFM and Nephrology Consultation No Cardio-Obstetrics: Joint MFM and Cardiology Consultation No Genetic Counseling Consultation: No fax [facility] Anna William [phone] Comments cervical shortening Encounter Details Date Type Department Care Team (Late st Contact Info) Description 02/21/2024 Transcribe Orders [facility] Maternal Medicine Center [place] [address] [facility] [address] [place] [address] [phone] Anna William MD [facility] AND [address] [address] related condition, antepartum (Primary Dx) Social History Tobacco Use Types Packs/Day Years Used Date Smoking Tobacco: Never Assessed Sex and Gender Information Value Date Recorded Sex Assigned at Not on file Gender Identity Not on file Sexual Orientation Not on file documented as of this encounter Plan of Treatment Upcoming Encounters Date Type Department Care Team (Late st Contact Info) Description 03/12/2024 3:30 PM CDT Appointment [facility] Maternal Medicine Center [place] [address] [facility] [address] [place] [address] [phone] Amilcar Dickerson MD [address] [place], [place] [phone] 03/12/2024 4:00 PM CDT Office Visit [facility] Maternal Medicine Center [place] [address] [facility] [address] [place] [address] [phone] Amilcar Dickerson MD [address] [place] [address] Scheduled Referrals Name Type Priority Associated Diagnoses Orde r Schedule Mat Med Ctr Referral - Referral Routine: Next available opening related condition, antepartum Expected: 02/21/2024 (Approximate), Expires: 08/19/2024 documented as of this encounter Results * MFM US OB Transvaginal (02/26/2024 9:43 AM CDT) [...] ? Study Date: ??02/26/2024 8:56am Pat. NO: ??[id number] ?Referring ??MD: ANNA WILLIAM Site: ? Air Compressor Mechanic: Jillian Dias RDMS : ??1985 ?Age: ?? [...] CL assessment until 24 0/7 weeks with [place] [facility] in 1 week and at [facility] in 2 weeks. Continue with vaginal progesterone. Procedure Note Amilcar Dickerson MD - 02/27/2024 Cx TV ----- Pat. Name: JOSE SMITH Study Date: 02/26/2024 8:56am Pat. NO: [id number] Referring MD: ANNA WILLIAM Site: Air Compressor Mechanic: Jillian Dias RDMS : 1985 Age: 38 ----- INDICATION ----- Short cervix METHOD ----- Transabdominal and transvaginal ultrasound examination. View:Sufficient. ----- [place] . Number of fetuses: 1 DATING ----- DateDetailsGest. age FAUSTO LMP w + 4 d 07/25/2024 Previous U/S 12/13/2023 GA, GA9 w + 0 d19 w + 5 d 07/17/2024 Assigned dating based on ultrasound (GA), selected 02/26/2024 19w + 5 d 07/17/2024 GENERAL EVALUATION [...] CL [facility] 2 weeks. Continue with vaginal progesterone. IMPRESSION ----- This is an active single fetus with behavior appropriate for gestationalage at 19w5d, with history of 3 term births, 4 first trimester Sab and onesecond trimester loss after trauma and bleeding. Normal amniotic fluid volume is measured. Transabdominal and transvaginal views of the cervix and the cervicallength were obtained. Anna William MD [facility] US ORDERAB LES documented in this encounter Visit Diagnoses Diagnosis related condition, antepartum- Primary related condition, antepartum documented in this encounter Care Teams Airline Flight Attendant Relationship Specialty Start Date End Date Mattie Vasques MD [facility] & [address] [address] PCP - General Family Medicine 02/21/24 documented as of this encounter
== END 2024-03-06 13:27 | disposition home or self-care (01) ==
LOC: US 13:26
PROVIDERS: PCP Family Medicine; Visit Provider Obstetrics & Gynecology
DX: O26.879 Cervical shortening, unspecified trimester (principal); Z3A.20 20 weeks gestation of pregnancy
CPT/HCPCS: 76815; 76817; T1013

== ENCOUNTER 2024-03-20 13:20 | Outpatient (CLI) | payer OTHER, SELFPAY ==
--- OUTSIDE RECORDS SUMMARY | 2024-03-20 13:22 | XMS_ITS | Encounter Summary ---
Author Organization [place] Address [facility] [place] [address] Care Team Providers Care Information Assurance Engineer Name Role Phone Mattie Vasques MD Primary [...] Care Team (Late st Contact Info) Description 03/29/2024 3:00 PM CDT Appointment [facility] [address] [phone] Vicki Love MD [address] [place] [phone] Ashley Heaton MD [address] [place], [place] [phone] 03/29/2024 3:30 PM CDT Office Visit [facility] [address] [phone] Vicki Love MD [address] [place] [phone] Ashley Heaton MD [address] [facility] [address] [place] [address] documented as of this encounter Visit Diagnoses Not on filedocumented in this encounter Care Teams Information Assurance Engineer Relationship Specialty Start Date End Date Mattie Vasques MD [facility] & [address] [address] PCP - General Family Medicine 02/21/24 documented as of this encounter
--- OUTSIDE RECORDS SUMMARY | 2024-03-20 13:22 | XMS_ITS | Encounter Summary ---
Author Organization [place] Address [address] [place] [address] Care Team Providers Care Master Lay Out Specialist Name Role Phone Mattie Vasques MD Primary Care Provider + Reason for Referral * Diagnostic Imaging Ultrasound (Routine) - Pending Review Specialty Diagnoses / Procedures Referred By Contac t Referred To Contact Radiology. Diagnoses related condition, antepartum Procedures [facility] US OB Transvaginal Anna William MD [facility] [address] [place] [address] Referral ID Status Reason Start Date Expiration Date V isits Requested Visits Authorized [id number] Pending Review 02/21/2024 02/20/2025 1 1 * Consultation (Routine: Next available opening) - Pending Review Specialty Diagnoses / Procedures Referred By Contac t Referred To Contact Diagnoses related condition, antepartum Anna William MD [facility] [address] [place] [address] Rh Maternal Med [address] [facility] [address] [place] [address] Referral ID Status Reason Start Date Expiration Date V isits Requested Visits Authorized [id number] Pending Review 02/21/2024 02/20/2025 1 1 Question Answer Preferred Location: [facility] [place] 07/17/2024 Ultrasound MFM Recommendation US PROC NONE MFM Issue OTHER (enter details in Comments) - cervical shortening MFM Consultation (unrelated to Ultrasound findings): No Inflammatory Bowel Disease Clinic: Joint MFM and GI Consultation: No Chronic Kidney Disease: Joint MFM and Nephrology Consultation No Cardio-Obstetrics: Joint MFM and Cardiology Consultation No Genetic Counseling Consultation: No fax [facility] Anna William [phone] Comments cervical shortening Encounter Details Date Type Department Care Team (Late st Contact Info) Description 02/21/2024 Transcribe Orders [facility] Maternal Medicine Center [place] [address] [facility] [address] [place] [phone] Anna William MD [facility] [address] [place] [address] related condition, antepartum (Primary Dx) Social History [...] Info) Description 03/29/2024 3:00 PM CDT Appointment [facility] Maternal Medicine Center [address] [place] [phone] Vicki Love MD [address] [place], [place] [phone] Ashley Heaton MD [address] [place] [address] 03/29/2024 3:30 PM CDT Office Visit [facility] Maternal Medicine Center [address] [place] [phone] Vicki Love MD [address] [place] [address] Ashley Heaton MD [address] [place] [address] Scheduled Referrals Name Type Priority [...] ? Study Date: ??02/26/2024 8:56am Pat. NO: ??[id number] ?Referring ??MD: ANNA WILLIAM Site: ? Hoop Expander: Jillian Dias RDVA : ??1985 ?Age: ?? 38 ----- INDICATION [...] CL assessment until 24 0/7 weeks with [facility] in 1 week and at [facility] in 2 weeks. Continue with vaginal progesterone. Procedure Note Amilcar Dickerson MD - 02/27/2024 Cx TV ----- Pat. Name: JOSE SMITH Study Date: 02/26/2024 8:56am Pat. NO: [id number] Referring MD: ANNA WILLIAM Site: Hoop Expander: Jillian Dias RDMS : 1985 Age: 38 [...] [facility] 2 weeks. Continue with vaginal progesterone. IMPRESSION ----- This is an active single fetus with behavior appropriate for gestationalage at 19w5d, with history of 3 term births, 4 first trimester Sab and onesecond trimester loss after trauma and bleeding. Normal amniotic fluid volume is measured. Transabdominal and transvaginal views of the cervix and the cervicallength were obtained. Anna William MD [facility] US ORDERAB LES documented in this encounter Visit Diagnoses Diagnosis related condition, antepartum- Primary related condition, antepartum documented in this encounter Care Teams Master Lay Out Specialist Relationship Specialty Start Date End Date Mattie Vasques MD [facility] & [address] [address] PCP - General Family Medicine 02/21/24 documented as of this encounter
--- OUTSIDE RECORDS SUMMARY | 2024-03-20 13:22 | XMS_ITS | Encounter Summary ---
Author Organization [place] Address [facility] [place] [address] Care Team Providers Care Trimmer Operator Name Role Phone Mattie Vasques MD Primary Care Provider + Encounter Details Date Type Department Care Team (Latest Contact Info) Description 03/12/2024 Travel Social History Tobacco Use Types Packs/Day [...] Info) Description 03/29/2024 3:00 PM CDT Appointment [facility] Maternal Medicine Center [address] [phone] Vicki Love MD [address] [place] [phone] Ashley Heaton MD [address] [place], [place] [phone] 03/29/2024 3:30 PM CDT Office Visit [facility] Maternal Medicine Center [address] [phone] Vicki Love MD [address] [place] [phone] Ashley Heaton MD [address] [facility] [address] [place] [address] documented as of this encounter Visit Diagnoses Not on filedocumented in this encounter Care Teams Trimmer Operator Relationship Specialty Start Date End Date Mattie Vasques MD [facility] & [address] [address] PCP - General Family Medicine 02/21/24 documented as of this encounter
--- OUTSIDE RECORDS SUMMARY | 2024-03-20 13:22 | XMS_ITS | Encounter Summary ---
Author Organization [place] Address [address] [place] [address] Care Team Providers Care Log Getter Name Role Phone Mattie Vasques MD Primary Care Provider + Reason for Referral * Diagnostic Imaging Ultrasound (Routine) - Pending Review Specialty Diagnoses / Procedures Referred By Contac t Referred To Contact Radiology. Diagnoses related condition, antepartum Procedures [facility] US OB Transvaginal Anna William MD [facility] [address] [place] [address] Referral ID Status Reason Start Date Expiration Date V isits Requested Visits Authorized [id number] Pending Review 02/21/2024 02/20/2025 1 1 Reason for Visit * Diagnostic Imaging Ultrasound (Routine) - Pending Review Specialty Diagnoses / Procedures Referred By Contac t Referred To Contact Radiology. Diagnoses related condition, antepartum Procedures MFM US OB Transvaginal Anna William MD [facility] [address] [place] [address] Referral ID Status Reason Start Date Expiration Date V isits Requested Visits Authorized [id number] Pending Review 02/21/2024 02/20/2025 1 1 Encounter Details Date Type Department Care Team (Latest Contact Info) Description 02/26/2024 8:45 AM CDT - 02/26/2024 11:59 PM CDT Hospital Encounter [facility] Maternal Medicine Center [place] [address] [place] [address] Amilcar Dickerson MD [address] [place], [place] [address] related condition, antepartum Discharge Disposition: Home or [...] Info) Description 03/29/2024 3:00 PM CDT Appointment [facility] Maternal Medicine Center [address] [phone] Vicki Love MD [address] [phone] Ashley Heaton MD [address] [address] 03/29/2024 3:30 PM CDT Office Visit [facility] Maternal Medicine [address] [phone] Vicki Love MD [address] [place] [phone] Ashley Heaton MD [address] [place], [place] [address] documented as of this encounter Procedures Procedure Name Priority Date/Time Associated Diagnosis Comments [facility] US OB TRANSVAGINAL Routine 02/26/2024 9:43 AM CDT related condition, antepartum documented in this encounter Results * [facility] US OB Transvaginal (02/26/2024 9:43 AM CDT) [...] ? Study Date: ??02/26/2024 8:56am Pat. NO: ??[id number] ?Referring ??: ANNA WILLIAM Site: ? Rivet Heater: Jillian Dias RDMS : ??1985 ?Age: ?? [...] CL assessment until 24 0/7 weeks with [facility] in 1 week and at [facility] in 2 weeks. Continue with vaginal progesterone. Procedure Note Amilcar Dickerson MD - 02/27/2024 Cx TV ----- Pat. Name: JOSE SMITH Study Date: 02/26/2024 8:56am Pat. NO: [id number] Referring MD: ANNA WILLIAM Site: Rivet Heater: Jillian Dias RDMS : 1985 Age: 38 [...] CL [facility] 0/[facility] in 2 weeks. Continue with vaginal progesterone. IMPRESSION ----- This is an active single fetus with behavior appropriate for gestationalage at 19w5d, with history of 3 term births, 4 first trimester Sab and onesecond trimester loss after trauma and bleeding. Normal amniotic fluid volume is measured. Transabdominal and transvaginal views of the cervix and the cervicallength were obtained. Anna William MD [facility] US ORDERAB LES documented in this encounter Visit Diagnoses Diagnosis related condition, antepartum documented in this encounter Care Teams Log Getter Relationship Specialty Start Date End Date Mattie Vasques MD [facility] & [address] [address] PCP - General Family Medicine 02/21/24 documented as of this encounter
--- OUTSIDE RECORDS SUMMARY | 2024-03-20 13:22 | XMS_ITS | Encounter Summary ---
Author Organization [place] Address [address] [facility] [place] [address] Care Team Providers Care Offal Separator Name Role Phone Mattie Vasques MD Primary Care Provider + Reason for Referral * Diagnostic Imaging Ultrasound (Routine) - Pending Review Specialty Diagnoses / Procedures Referred By Contac t Referred To Contact Radiology. Diagnoses Short cervix affecting Procedures [facility] US OB Transvaginal Vicki Love MD [address] [place] [address] Referral ID Status Reason Start Date Expiration Date V isits Requested Visits Authorized [id number] Pending Review 03/12/2024 03/12/2025 1 1 Reason for Visit * Reason Comments Ultrasound TV- Short Cervix Encounter Details Date Type Department Care Team (Late st Contact Info) Description 03/12/2024 4:00 PM CDT Office Visit [facility] Maternal Medicine [facility] [place] [address] [facility] [address] [place] [phone] Amilcar Dickerson MD [address] [place] [address] Khadra Ballesteros MD [address] [place] [address] Short cervix affecting (Primary Dx); Multigravida of advanced maternal age in second trimester Social History Tobacco Use Types Packs/Day Years Used Date Smoking Tobacco: Never Assessed Estimated Date of Delivery Comme nts Yes 07/17/2024 Based on Ultraso und Sex and Gender Information Value Date Recorded Sex Assigned at Not on file Gender Identity Not on file Sexual Orientation Not on file documented as of this encounter Progress Notes * Vicki Love MD - 03/12/2024 4:00 PM CDT Please see full imaging report from ViewPoint program under imaging tab. Vicki Love M.D. Maternal -Medicine Specialist documented in this encounter Nursing Notes * Katharine Parra RN - 03/12/2024 4:00 PM CDT foreign language interpreter used via IPAD during MFM appointment. Patient denies pain, contractions, leaking of fluid, or bleeding. SBAR given to MFM MD, see their note in Epic. documented in this encounter Plan of Treatment Upcoming Encounters Date Type Department Care Team (Late st Contact Info) Description 03/29/2024 3:00 PM CDT Appointment [facility] [address] [place] [phone] Vicki Love MD [address] [place], [place] [phone] Ashley Heaton MD [address] [place], [place] [phone] 03/29/2024 3:30 PM CDT Office Visit [facility] [address] [place] [phone] Vicki Love MD [address] [place], [place] [phone] Ashley Heaton MD [address] [place], [place] [address] Scheduled Orders Name Type Priority Associated Diagnoses Orde r Schedule MFM US OB Transvaginal Imaging Routine Short cervix affecting Expected: 03/26/2024 (Approximate), Expires: 01/09/2025 documented as of this encounter Visit Diagnoses Diagnosis Short cervix affecting - Primary Cervical shortening, unspecified as to episode of care or not applicable Multigravida of advanced maternal age in second trimester documented in this encounter Care Teams Offal Separator Relationship Specialty Start Date End Date Mattie Vasques MD [facility] & [address] [address] PCP - General Family Medicine 02/21/24 documented as of this encounter
--- OUTSIDE RECORDS SUMMARY | 2024-03-20 13:22 | XMS_ITS | Data Portability ---
Author Organization [facility] - Olivia coleman [facility] Address [address] [place] [address] [place] [address] Assessment No assessment recorded. Plan of Treatment [...] Modified By Organization Details Last Modified Time 04/06/202150203 take invermectin 3 mg on days 1 & 2 & 8, call if not better, clean apt as directed by internet eulalia Not available 04/06/2021 19:36:28 Reason for Referral Raisin Separator Operator/care Coordinato r Referral for Abnormal cervical Papanicolaou smear Referral to complete JUNIE paperwork prior to referral to [facility] for colposcopy Referring Physician: [facility], Encounter Date: 05/12/2021 Cake Puncher Referral for Ab normal cervical Papanicolaou smear JUNIE Referral to [facility] for Colposcopy Nigerien speaking Referring Physician: [facility], Encounter Date: 05/12/2021 Results Created Date Observation Date Name Description Value Unit Range Abnormal Flag Note LastModifiedBy Organization Detail LastModifiedTime 04/21/20 21 04/21/2021 pap, LB + HR HPV HPV type 16 positi ve negati ve abnormal Not Available [facility] [address], [place], [address], 04/26/2021 13:08:30 04/21/20 21 04/21/2021 pap, LB + HR HPV cytology unsati sfacto ry abnormal Not Available Not Available 14:20:46 Result Notes None recorded. Problems Name Problem SNOMED Code Status Onset Date Resolution Date Notes Provider Name and Address Organization Details Recorded Time Polyp of cervix 54469454 Active 021 Radha Conway NP [address] [place], [address] , [facility] [employer] [facility] 04/21/2021 18:31:23 Problem Notes None recorded. Procedures Surgical History Date Name Laterality Status Provider Name and Address Organization Details Recorded Time IUD Removal completed Radha Conway NP [address] [place], [address], [facility] 04/21/2021 17:32:55 Imaging Results None recorded. Procedure Notes None recorded. Medical Equipment None Reported. Allergies No known drug allergies Medications Not known to be on any medication Vitals Date Recorded Body weight Provider Name an d Address Organization Details Last Updated DateTime 04/06/2021 93729.71 g Phill Lockwood [facility] [place], [address] 04/06/2021 19:32:47 Date Recorded Body height Body mass index (BMI) Body weight Heart rate Systolic blood pressure Diastolic blood pressure Provider Name and Address Organization Details Last Updated DateTime 148.59 cm 23.7 kg/m2 50372.2 8 g 78 /min 104 mm[Hg] 67 mm[Hg] Radha Conway NP [address] [place], [address], [facility] [employer] 14:45:32 Social History None recorded. Functional Status [...] Encounter Closed Date Diagnosis/Indication Diagnosis SNOMED-CT Code Diagnosis ICD10 Code [id number] Tulio Jimenez MD [facility] [address] [facility] [place] [address] 04/06/2021 18:05:08 04/06/2021 19:07:53 Pruritic disorder 962206872 L29.9 [id number] Radha Conway NP [facility] [address] [facility] [place] [address] 04/21/2021 14:36:36 04/21/2021 15:22:32 Irregular periods 74146815 N92.6 Polyp of cervix 05405142 N84.1 Removal of intrauterine device 49405591 Z30.432 Screening for malignant neoplasm of cervix 408863412 Z12.4 Health Concerns Section Related Observation LastModified by [...] legs, NK[place], [place] [address] [place] [address], [phone], [facility] 04/06/2021 19:36:48 04/21/2021 text/html HPI Notes: 36 y.o. presents for removal of Copper IUD placed in [facility] 02/2016 Desires removal due to 6-month [...] fatigue, excessive thirst, headache, dry skin. Radha Conway, OIL AND GAS RECRUITER [address] [place], [address], [facility] - [facility] 04/21/2021 18:31:28 OBGyn Episode No OBEpisode recorded.
--- OUTSIDE RECORDS SUMMARY | 2024-03-20 13:22 | XMS_ITS | Encounter Summary ---
Author Organization [place] Address [address] [place] [address] Care Team Providers Care Central Service Supply Distributor Name Role Phone Mattie Vasques MD Primary Care Provider + Reason for Referral * Diagnostic Imaging Ultrasound (Routine) - Pending Review Specialty Diagnoses / Procedures Referred By Contac t Referred To Contact Radiology. Diagnoses Short cervix affecting Procedures MFM US OB Transvaginal Amilcar Dickerson MD [address] [facility] [address] [address] Referral ID Status Reason Start Date Expiration Date V isits Requested Visits Authorized [id number] Pending Review 02/26/2024 02/25/2025 1 1 Reason for Visit * Diagnostic Imaging Ultrasound (Routine) - Pending Review Specialty Diagnoses / Procedures Referred By Contac t Referred To Contact Radiology. Diagnoses Short cervix affecting Procedures MFM US OB Transvaginal Amilcar Dickerson MD [address] [place] [address] Referral ID Status Reason Start Date Expiration Date V isits Requested Visits Authorized [id number] Pending Review 02/26/2024 02/25/2025 1 1 Encounter Details Date Type Department Care Team (Latest Contact Info) Description 03/12/2024 3:25 PM CDT - 03/12/2024 11:59 PM CDT Hospital Encounter [facility] [place] [address] [facility] [address] [place] [phone] Amilcar Dickerson MD [address] [facility] [address] [place] [address] Khadra Ballesteros MD [address] [address] Short cervix affecting Discharge Disposition: Home or Self Care Social [...] Info) Description 03/29/2024 3:00 PM CDT Appointment [facility] [address] [place] [phone] Vicki Love MD [address] [address] Ashley Heaton MD [address] [phone] 03/29/2024 3:30 PM CDT Office Visit [facility] [address] [place] [phone] Vicki Love MD [address] [phone] Ashley Heaton MD [address] [phone] documented as of this encounter Procedures Procedure Name Priority Date/Time Associated Diagnosis Comments MFM US OB TRANSVAGINAL Routine 03/12/2024 3:57 PM CDT Short cervix affecting documented in this encounter Results * MFM US OB Transvaginal (03/12/2024 3:57 PM CDT) Anatomical Region Laterality Modality Ultrasound 03/12/2024 3:32 PM CDT Impressions 03/12/2024 4:48 PM CDT IMPRESSION ----- 1. Burrows at 21w 6d gestational age. 2. The amniotic fluid measurement is within normal limits. 3. On transvaginal imaging the cervix is 2.4 cm and appears closed. Narrative 03/12/2024 4:48 PM CDT ?Cx TV ----- Pat. Name: JOSE SMITH ? Study Date: ??03/12/2024 3:32pm Pat. NO: ??[id number] ?Referring ??: WANDY COMBS Site: ? Application Security Engineer: Nadia Friend RDMS : ??1985 ?Age: ?? 38 ----- INDICATION ----- Short cervix METHOD ----- Transabdominal and transvaginal ultrasound examination. View: Sufficient ----- Burrows . Number of fetuses: 1 DATING ----- ? Date ?Details ?Gest. age ?FAUSTO LMP ?10/19/2023 ? 20 w + 5 d ? 07/25/2024 Previous U/S ?12/13/2023 ?GA, GA 9 w + 0 d ? 21 w + 6 d ? 07/17/2024 Assigned dating ?based on ultrasound (GA), selected on 02/26/2024 ?21 w + 6 d ? 07/17/2024 GENERAL EVALUATION ----- Cardiac activity present. FHR 135 bpm. movements: visualized. Presentation: cephalic Placenta: Anterior Umbilical cord: previously studied Amniotic fluid: Amount of AF: normal. MVP 5.7 cm MATERNAL STRUCTURES ----- Cervix ?Normal ? Appearance: Appears closed. ? Approach - Transvaginal: Cervical length 24.3 mm RECOMMENDATION ----- Thank-you for referring your patient for a cervical length assessment. We discussed the findings on today's ultrasound with the patient. She denies any symptoms of labor at this time. She continues to use nightly vaginal progesterone and states that she has refills of this medication. She had questions regarding work restrictions. She works 8 hrs per day, has 3 breaks, and does not do any heavy lifting. We reviewed that she can continue this work schedule and also reviewed that bed rest is not recommended. All questions answered at this time. Plan: - Continue weekly cervical length surveillance as previously recommended, alternating between [facility] and [facility]. Return to primary provider for continued care. If you have questions regarding today's evaluation or if we can be of further service, please contact the Maternal- Medicine Center. anomalies may be present but not detected I spent a total of 30 minutes on the date of this encounter including preparing to see the patient (reviewing medical records/tests), counseling and discussing the plan of care, documenting the visit in the electronic medical record, and communicating with other health personal care attendant and/or care coordination. Procedure Note Amilcar Dickerson MD / Vicki Love MD - 03/14/2024 Cx TV ----- Pat. Name: JOSE SMITH Study Date: 03/12/2024 3:32pm Pat. NO: [id number] Referring MD: WANDY COMBS Site: Application Security Engineer: Nadia Friend RDMS : 1985 Age: 38 ----- INDICATION ----- Short cervix METHOD ----- Transabdominal and transvaginal ultrasound examination. View: Sufficient ----- Burrows . Number of fetuses: 1 DATING ----- DateDetailsGest. age FAUSTO LMP w + 5 d 07/25/2024 Previous U/S 12/13/2023 GA, GA9 w + 0 d21 w + 6 d 07/17/2024 Assigned dating based on ultrasound (GA), selected on02/26/2024 21w + 6 d 07/17/2024 GENERAL EVALUATION ----- Cardiac activity present. FHR 135 bpm. movements: visualized.Presentation: cephalic Placenta: Anterior Umbilical cord: previously studied Amniotic fluid: Amount of AF: normal. MVP 5.7 cm MATERNAL STRUCTURES ----- Cervix Normal Appearance: Appears closed. Approach - Transvaginal:Cervical length 24.3 mm RECOMMENDATION ----- Thank-you for referring your patient for a cervical length assessment. We discussed the findings on today's ultrasound with the patient. She denies any symptoms of labor at this time. She continues touse nightly vaginal progesterone and states that she has refills of thismedication. She had questions regarding work restrictions. She works 8 hrs per day, has [employer], and does not do any heavy lifting. We reviewed that she cancontinue this work schedule and also reviewed that bed rest is not recommended. All questions answered atthis time. Plan: - Continue weekly cervical length surveillance as previously recommended,alternating between [facility] and [facility]. Return to primary provider for continued care. If you have questions regarding today's evaluation or if we can be offurther service, please contact the Maternal- Medicine Center. anomalies may be present but not detected I spent a total of 30 minutes on the date of this encounter includingpreparing to see the patient (reviewing medical records/tests), counselingand discussing the plan of care, documenting the visit in the electronic medical record, andcommunicating with other health personal care attendant and/or carecoordination. IMPRESSION ----- 1. Burrows at 21w 6d gestational age. 2. The amniotic fluid measurement is within normal limits. 3. On transvaginal imaging the cervix is 2.4 cm and appears closed. Amilcar Dickerson MD IMG MFM US ORDERABLE S documented in this encounter Visit Diagnoses Diagnosis Short cervix affecting Cervical shortening, unspecified as to episode of care or not applicable documented in this encounter Care Teams Central Service Supply Distributor Relationship Specialty Start Date End Date Mattie Vasques MD [facility] & [address] [address] PCP - General Family Medicine 02/21/24 documented as of this encounter
--- OUTSIDE RECORDS SUMMARY | 2024-03-20 13:22 | XMS_ITS | Encounter Summary ---
Author Organization [place] Address Formerly [facility] [place] [address] Care Team Providers Care Day Habilitation Specialist Name Role Phone Mattie Vasques MD Primary Care Provider + Reason for Visit * Reason Comments Ultrasound TV- short cervix on outside ultrasound Encounter Details Date Type Department Care Team (Late st Contact Info) Description 02/22/2024 PRE VISIT [facility] M[facility] Medicine [facility] [place] [address] [place], [place] [phone] Dyan Ch, RN Ultrasound (TV- short cervix [...] Upcoming Encounters Date Type Department Care Team ([facility] Contact Info) Description 03/29/2024 3:00 PM CDT Appointment [facility] Center [address] [phone] Vicki Love MD [address] [phone] Ashley Heaton MD [address] [place], [place] [address] 03/29/2024 3:30 PM CDT Office Visit [facility] [place] [address] [facility] [address] [place] [phone] Vicki Love MD [address] [place] [address] Ashley Heaton MD [address] [place] [address] documented as of this encounter Visit Diagnoses Not on filedocumented in this encounter Care Teams Day Habilitation Specialist Relationship Specialty Start Date End Date Mattie Vasques MD [facility] [address] [place] [address] PCP - General Family Medicine 02/21/24 documented as of this encounter
--- OUTSIDE RECORDS SUMMARY | 2024-03-20 13:22 | XMS_ITS | Clinical Summary ---
Author Organization [place] [facility] [place] [address] Care Team Providers Care Hotel Supplies Salesperson Name Role Phone Mattie Vasques MD Primary Care Provider + Encounters Date Type Department Care Team Description 03/12/2024 4:00 PM CDT Office Visit [facility] [address] [facility] [address] [place] [phone] Amilcar Dickerson MD Jones, Cresta Wedel, MD Short cervix affecting (Primary Dx); Multigravida of advanced maternal age in second trimester 03/12/2024 3:25 PM CDT - 03/12/2024 11:59 PM CDT Hospital Encounter [facility] [address] [facility] [address] [place] [phone] Amilcar Dickerson MD Jones, Cresta Wedel, MD Short cervix affecting Discharge Disposition: Home or Self Care 03/12/2024 Travel 02/26/2024 9:15 AM CDT Office Visit [facility] Maternal Medicine [facility] [address] [place] [address] Amilcar Dickerson MD Short cervix affecting (Primary Dx) 02/26/2024 8:45 AM CDT - 02/26/2024 11:59 PM CDT Hospital Encounter [facility] Maternal Medicine [facility] [address] [place] [phone] Amilcar Dickerson MD related condition, antepartum Discharge Disposition: Home or Self Care 02/26/2024 Travel 02/22/2024 PRE VISIT [facility] Maternal Medicine [facility] [address] [place], [place] [phone] Dyan Ch RN Ultrasound (TV- short cervix on outside ultrasound) 02/21/2024 Transcribe Orders [facility] Maternal Medicine [facility] [address] [facility] [address] [place] [address] Anna William MD related condition, [...] Info) Description 03/29/2024 3:00 PM CDT Appointment [facility] Maternal Medicine [facility] [address] [facility] [address] [place] [phone] Vicki Love MD [address] [address] Ashley Heaton MD [address] [phone] 03/29/2024 3:30 PM CDT Office Visit [facility] Maternal Medicine [facility] [address] [facility] [address] [place] [phone] Vicki Love MD [address] [phone] Ashley Heaton MD [address] [phone] Health Maintenance Due Date Last Done Comments ADVANCE CARE PLANNING 1985 ANNUAL REVIEW OF HM ORDERS 1985 GLUCOSE 1985 YEARLY PREVENTIVE VISIT 1985 HIV SCREENING 2000 HEPATITIS C SCREENING 2003 HEPATITIS B IMMUNIZATION (1 of 3 - 19+ 3-dose series) 2004 PAP 2006 DTAP/TDAP/TD IMMUNIZATION (1 - Tdap) 2010 PHQ-2 (once per calendar year) 2023 MATERNAL SCREENING DISCUSSION 12/20/2023 COVID-19 Vaccine (1 - 2022-2 4 season) 2024 INFLUENZA VACCINE (#1) 2024 OBGCT (OB) 03/27/2024 RSV VACCINE (1 - Risk pregna nt 1-dose series) 05/22/2024 HPV IMMUNIZATION Aged Out [...] Procedure Name Priority Date/Time Associated Diagnosis Comments [facility] OB TRANSVAGINAL Routine 03/12/2024 3:57 PM CDT Short cervix affecting [facility] US OB TRANSVAGINAL Routine 02/26/2024 9:43 AM CDT related condition, antepartum from Last 3 Months Results * [facility] US OB Transvaginal (03/12/2024 3:57 PM CDT) Only the most recent of2 resultswithin the time period is included. Anatomical Region Laterality Modality Ultrasound 03/12/2024 3:32 PM CDT Impressions 03/12/2024 4:48 PM CDT IMPRESSION ----- 1. Burrows at 21w 6d gestational age. 2. The amniotic fluid measurement is within normal limits. 3. On transvaginal imaging the cervix is 2.4 cm and appears closed. Narrative 03/12/2024 4:48 PM CDT ?Cx TV ----- Pat. Name: JOSE SMITH ? Study Date: ??03/12/2024 3:32pm Pat. NO: ??[id number] ?Referring ??: ANNA WILLIAM Site: ? Dumper Bulk System: Nadia Friend RDMS : ??1985 ?Age: ?? [...] length surveillance as previously recommended, alternating between [facility] and [facility]. Return to primary provider for continued care. [...] medical record, and communicating with other health home health caregiver and/or care coordination. Procedure Note Amilcar Dickerson MD / Vicki Love MD - 03/14/2024 Cx TV ----- Pat. Name: JOSE SMITH Study Date: 03/12/2024 3:32pm Pat. NO: [id number] Referring MD: ANNA WILLIAM Site: Dumper Bulk System: Nadia Friend RDMS : 1985 Age: 38 [...] She works 8 hrs per day, has 3breaks, and does not do any heavy lifting. We reviewed that she cancontinue this work schedule and also reviewed that bed rest is not recommended. All questions answered atthis time. Plan: - Continue weekly cervical length surveillance as previously recommended,alternating between [facility] and [facility]. Return to primary provider for continued care. [...] electronic medical record, andcommunicating with other health home health caregiver and/or carecoordination. IMPRESSION ----- 1. Burrows at 21w 6d gestational age. 2. The amniotic fluid measurement is within normal limits. 3. On transvaginal imaging the cervix is 2.4 cm and appears closed. Amilcar Dickerson MD [facility] [place] [facility] ORDERABLE S from Last 3 Months Care Teams Hotel Supplies Salesperson Relationship Specialty Start Date End Date Mattie Vasques MD [facility] [address] [place] [address] PCP - General Family Medicine 02/21/24
--- OUTSIDE RECORDS SUMMARY | 2024-03-20 13:22 | XMS_ITS | Encounter Summary ---
Author Organization [place] Address [address] [place] [address] Care Team Providers Care Physicist Cryogenics Name Role Phone Mattie Vasques MD Primary Care Provider + Reason for Referral * Diagnostic Imaging Ultrasound (Routine) - Pending Review Specialty Diagnoses / Procedures Referred By Chele rm Referred To Contact Radiology. Diagnoses Short cervix affecting Procedures MFM US OB Transvaginal Amilcar Dickerson MD [address] [address] Referral ID Status Reason Start Date Expiration Date V isits Requested Visits Authorized [id number] Pending Review 02/26/2024 02/25/2025 1 1 Reason for Visit * Reason Comments Ultrasound TV- short cervix on outside ultrasound Encounter Details Date Type Department Care Team (Late st Contact Info) Description 02/26/2024 9:15 AM CDT Office Visit [facility] [place] [address] [address] Amilcar Dickerson MD [address] [facility] [address] [place] [address] Short cervix affecting (Primary Dx) [...] RN - 02/26/2024 9:15 AM CDT Ipad it infrastructure consultant used for M appt. Pt at [facility] for ultrasound- see detailed report under imaging tab. Pt reports positive movement, denies bleeding, cramping, loss of fluid or other concerns. SBAR given to MD. Per Dr. Dickerson- pt to be seen by M at [place] in 1 and 3 weeks and at [facility] in 2 weeks. Logistics Team Leader called [facility] and spoke with Nila who will await orders from referring physician and call pt to schedule. Order placed for TV ultrasound in 2 weeks and pt instructed by MD to stop at desk and schedule documented in this encounter Plan of Treatment Upcoming Encounters Date Type Department Care Team (Late st Contact Info) Description 03/29/2024 3:00 PM CDT Appointment [facility] Maternal Medicine Center [address] [place] [phone] Vciki Love MD [address] [place], [place] [address] Ashley Heaton MD [address] [place], [place] [phone] 03/29/2024 3:30 PM CDT Office Visit [facility] [address] [place] [address] Vicki Love MD [address] [place] [address] Ashley Heaton MD [address] [place] [address] documented as of this encounter Results * [...] ? Study Date: ??03/12/2024 3:32pm Pat. NO: ??[id number] ?Referring ??MD: WANDY COMBS Site: ? Brick Paving Checker: Nadia Friend RDMS : ??1985 ?Age: ?? [...] length surveillance as previously recommended, alternating between [facility] and [facility]. Return to primary provider for [...] medical record, and communicating with other health live in caregiver and/or care coordination. Procedure Note Amilcar Dickerson MD / Vicki Love MD - 03/14/2024 Cx TV ----- Pat. Name: JOSE SMITH Study Date: 03/12/2024 3:32pm Pat. NO: [id number] Referring MD: WANDY COMBS Site: Brick Paving Checker: Nadia Friend RDMS : 1985 Age: 38 [...] cervical length surveillance as previously recommended,alternating between [facility] and [facility]. Return to primary provider for [...] electronic medical record, andcommunicating with other health live in caregiver and/or carecoordination. IMPRESSION ----- 1. Burrows at 21w 6d gestational age. 2. The amniotic fluid measurement is within normal limits. 3. On transvaginal imaging the cervix is 2.4 cm and appears closed. Amilcar Dickerson MD IM [facility] US ORDERABLE S documented in this encounter Visit Diagnoses Diagnosis Short cervix affecting - Primary Cervical shortening, unspecified as to episode of care or not applicable Short cervix affecting Cervical shortening, unspecified as to episode of care or not applicable documented in this encounter Care Teams Physicist Cryogenics Relationship Specialty Start Date End Date Mattie Vasques MD [facility] & [address] [address] PCP - General Family Medicine 02/21/24 documented as of this encounter
--- OUTSIDE RECORDS SUMMARY | 2024-03-20 13:22 | XMS_ITS | Referral Summary ---
Author Organization [place] Address [facility] [place] [address] Care Team Providers Care Ice Delivery Driver Name Role Phone Mattie Vasques MD Primary Care Provider + Encounters Date Type Department Care Team Description 03/12/2024 Travel 03/12/2024 4:00 PM CDT Office Visit [facility] Maternal Medicine [facility] [address] [facility] [address] [place] [phone] Amilcar Dickerson MD Jones, Cresta Wedel, MD Short cervix affecting (Primary Dx); Multigravida of advanced maternal age in second trimester 03/12/2024 3:25 PM CDT - 03/12/2024 11:59 PM CDT Hospital Encounter [facility] Maternal Medicine [facility] [address] [facility] [address] [place] [phone] Amilcar Dickerson MD Jones, Cresta Wedel, MD Short cervix affecting Discharge Disposition: Home or Self Care 02/26/2024 Travel 02/26/2024 9:15 AM CDT Office Visit [facility] Maternal Medicine [facility] [address] [place] [address] Amilcar Dickerson MD Short cervix affecting (Primary Dx) 02/26/2024 8:45 AM CDT - 02/26/2024 11:59 PM CDT Hospital Encounter [facility] Maternal Medicine [facility] [address] [phone] Amilcar Dickerson MD related condition, antepartum Discharge Disposition: Home or Self Care 02/22/[address] [facility] Maternal Medicine [place] [address] [place], [place] [address] Dyan Ch RN Ultrasound (TV- short cervix on outside ultrasound) 02/21/[address] [facility] Maternal Medicine [facility] [address] [facility] [address] [place] [address] Anna William MD related condition, [...] Info) Description 03/29/2024 3:[address] [facility] Maternal Medicine [address] [place] [phone] Vicki Love MD [address] [address] Ashley Heaton MD [address] [phone] 03/29/2024 3:30 PM CDT Office Visit [facility] Maternal Medicine [facility] [address] [facility] [address] [place] [phone] Vicki Love MD [address] [address] Ashley Heaton MD [address] [phone] Procedures Procedure Name Priority Date/Time Associated Diagnosis Comments MFM US OB TRANSVAGINAL Routine 03/12/2024 3:57 PM CDT Short cervix affecting [facility] US OB TRANSVAGINAL Routine 02/26/2024 9:43 AM CDT related condition, antepartum from Last 3 Months Results * [facility] US OB Transvaginal (03/12/2024 3:57 PM [...] ? Study Date: ??03/12/2024 3:32pm Pat. NO: ??[id number] ?Referring ??MD: ANNA WILLIAM Site: ? Risk Prevention Engineer: Nadia Friend RDMS : ??1985 ?Age: [...] length surveillance as previously recommended, alternating between [facility] and [facility]. Return to primary provider for continued [...] medical record, and communicating with other health health care consultant and/or care coordination. Procedure Note Amilcar Dickerson MD / Vicki Love MD - 03/14/2024 Cx TV ----- Pat. Name: JOSE SMITH Study Date: 03/12/2024 3:32pm Pat. NO: [id number] Referring MD: ANNA WILLIAM Site: Risk Prevention Engineer: Nadia Friend RDMS : 1985 Age: [...] cervical length surveillance as previously recommended,alternating between [facility] and [facility]. Return to primary provider for continued [...] electronic medical record, andcommunicating with other health health care consultant and/or carecoordination. IMPRESSION ----- 1. Burrows at 21w 6d gestational age. 2. The amniotic fluid measurement is within normal limits. 3. On transvaginal imaging the cervix is 2.4 cm and appears closed. Amilcar Dickerson MD [facility] US ORDERABLE S from Last 3 Months Care Teams Ice Delivery Driver Relationship Specialty Start Date End Date Mattie Vasquse MD [facility] [address] [place] [address] PCP - General Family Medicine 02/21/24
== END 2024-03-20 13:21 | disposition home or self-care (01) ==
LOC: US 13:20
PROVIDERS: PCP Family Medicine; Visit Provider Obstetrics & Gynecology
DX: O26.872 Cervical shortening, second trimester (principal); Z3A.23 23 weeks gestation of pregnancy
CPT/HCPCS: 76816; 76817; T1013

== ENCOUNTER 2024-04-24 15:33 | Outpatient (CLI) | payer OTHER, SELFPAY ==
--- OUTSIDE RECORDS SUMMARY | 2024-04-27 15:18 | XMS_ITS | Referral Summary ---
Author Organization [place] Address [address] [facility] [place] [address] Care Team Providers Care Genetic Physician Name Role Phone Mattie Vasques MD Primary Care Provider + Amilcar Dickerson MD Unavailable [phone] Encounters Date Type Department Care Team Description 03/12/2024 Travel 03/12/2024 4:00 PM CDT Office Visit [facility] [address] [place] [address] Amilcar Dickerson MD Jones, MD Kate Wheat Sereen, MD Short cervix affecting (Primary Dx); Multigravida of advanced maternal age in second trimester 03/12/2024 3:25 PM CDT - 03/12/2024 11:59 PM CDT Hospital Encounter [facility] [address] [place] [address] Amilcar Dickerson MD Jones, Khadra Worrell MD Short cervix affecting Discharge Disposition: Home or Self Care 02/26/2024 Travel 02/26/2024 9:15 AM CDT Office Visit [facility] Medicine [facility] [address] [place] [address] Amilcar Dickerson MD Short cervix affecting (Primary Dx) 02/26/2024 8:45 AM CDT - 02/26/2024 11:59 PM CDT Hospital Encounter [facility] [place] [address] [place] [address] Amilcar Dickerson MD related condition, antepartum Discharge Disposition: Home or Self Care 02/22/2024 PRE VISIT [facility] Maternal Medicine [facility] [address] [place] [address] Dyan Ch RN Ultrasound (TV- short cervix on outside ultrasound) 02/21/2024 Transcribe Orders [facility] Maternal Medicine [facility] [address] [place] [address] Anna William MD related condition, antepartum (Primary Dx) from Last 3 Months Social History Tobacco Use Types Packs/Day Years Used Date Smoking Tobacco: Never Assessed Estimated Date of Delivery Comme nts Yes 07/17/2024 Based on Ultraso und Sex and Gender Information Value Date Recorded Sex Assigned at Not on file Gender Identity Not on file Sexual Orientation Not on file Plan of Treatment Not on file Procedures Procedure Name Priority Date/Time Associated Diagnosis Comments [facility] US OB TRANSVAGINAL Routine 03/12/2024 3:57 PM CDT Short cervix affecting [facility] US OB TRANSVAGINAL Routine 02/26/2024 9:43 AM CDT related condition, antepartum from Last 3 Months Results * [facility] US OB Transvaginal (03/12/2024 3:57 PM [...] PM CDT ?Cx TV ----- Pat. Name: JAKEJOSE HALL ? Study Date: ??03/12/2024 3:32pm Pat. NO: ??[id number] ?Referring ??MD: ANNA WILLIAM Site: ? Admitting Counselor: Nadia Friend RDMS : ??1985 ?Age: ?? [...] length surveillance as previously recommended, alternating between [facility] and [facility]. Return to primary provider for continued [...] medical record, and communicating with other health cna caregiver and/or care coordination. Procedure Note Amilcar Dickerson MD / Vicki Love MD - 03/14/2024 Cx TV ----- Pat. Name: OJSE SMITH Study Date: 03/12/2024 3:32pm Pat. NO: [id number] Referring MD: ANNA WILLIAM Site: Admitting Counselor: Nadia Friend RDMS : 1985 Age: 38 [...] cervical length surveillance as previously recommended,alternating between [facility] and [facility]. Return to primary provider for continued [...] electronic medical record, andcommunicating with other health cna caregiver and/or carecoordination. IMPRESSION ----- 1. Burrows at 21w 6d gestational age. 2. The amniotic fluid measurement is within normal limits. 3. On transvaginal imaging the cervix is 2.4 cm and appears closed. Amilcar Dickerson MD [facility] US ORDERABLE S from Last 3 Months Care Teams Genetic Physician Relationship Specialty Start Date End Date Mattie Vasques MD [facility] [address] [place] [address] PCP - General Family Medicine 02/21/24 Amilcar Dickerson MD [address] [address] Assigned OBGYN Provider 04/01/24
--- OUTSIDE RECORDS SUMMARY | 2024-04-27 15:18 | XMS_ITS | Encounter Summary ---
Author Organization [place] Address [address] [place] [address] Care Team Providers Care Fleet Maintenance Manager Name Role Phone Mattie Vasques MD [...] as of this encounter Plan of Treatment Not on file documented as of this encounter Visit Diagnoses Not on filedocumented in this encounter Care Teams Fleet Maintenance Manager Relationship Specialty Start Date End Date Mattie Vasques MD [facility] [address] [place] [address] PCP - General Family Medicine 02/21/24 documented as of this encounter
--- OUTSIDE RECORDS SUMMARY | 2024-04-27 15:18 | XMS_ITS | Encounter Summary ---
Author Organization [place] Address [address] [place] [address] Care Team Providers Care Bag Filler Name Role Phone Mattie Vasques MD Primary Care Provider + Reason for Referral * Diagnostic Imaging Ultrasound (Routine) - Pending Review Specialty Diagnoses / Procedures Referred By Contac t Referred To Contact Radiology. Diagnoses related condition, antepartum Procedures [facility] US OB Transvaginal Anna Willima MD [facility] [address] [place] [address] Referral ID Status Reason Start Date Expiration Date V isits Requested Visits Authorized [id number] Pending Review 02/21/2024 02/20/2025 1 1 * Consultation (Routine: Next available opening) - Pending Review Specialty Diagnoses / Procedures Referred By Contac t Referred To Contact Diagnoses related condition, antepartum Anna William MD [facility] [address] [place] [address] [facility] [address] [place] [address] Referral ID Status Reason Start Date Expiration Date V isits Requested Visits Authorized [id number] Pending Review 02/21/2024 02/20/2025 1 1 Question Answer Preferred Location: [facility] [place]O 07/17/2024 Ultrasound MFM Recommendation US PROC NONE MFM Issue OTHER (enter details in Comments) - cervical shortening BHASKARM MD Consultation (unrelated to Ultrasound findings): No Inflammatory Bowel Disease Clinic: Joint MFM and GI Consultation: No Chronic Kidney Disease: Joint MFM and Nephrology Consultation No Cardio-Obstetrics: Joint MFM and Cardiology Consultation No Genetic Counseling Consultation: No fax [facility] Anna William [phone] Comments cervical shortening Encounter Details Date Type Department Care Team (Late st Contact Info) Description 02/21/2024 Transcribe Orders [facility] [place] [address] [place] [address] Anna William MD [facility] AND [address] [address] related condition, antepartum (Primary Dx) Social History Tobacco Use Types Packs/Day Years Used Date Smoking Tobacco: Never Assessed Sex and Gender Information Value Date Recorded Sex Assigned at Not on file Gender Identity Not on file Sexual Orientation Not on file documented as of this encounter Plan of Treatment Scheduled Referrals Name Type Priority Associated Diagnoses [...] ? Study Date: ??02/26/2024 8:56am Pat. NO: ??[id number] ?Referring ??MD: ANNA WILLIAM Site: ? Maintenance Mechanic Elevators: Jillian Dias RDMS : ??1985 ?Age: ?? [...] CL assessment until 24 0/7 weeks with [facility] in 1 week and at [facility] in 2 weeks. Continue with vaginal progesterone. Procedure Note Amilcar Dickerson MD - 02/27/2024 Cx TV ----- Pat. Name: JOSE SMITH Study Date: 02/26/2024 8:56am Pat. NO: [id number] Referring MD: ANNA WILLIAM Site: Maintenance Mechanic Elevators: Jillian Dias RDMS : 1985 Age: 38 [...] CL [facility] 0/[facility] [...] the cervicallength were obtained. Anna William MD [facility] US ORDERAB LES documented in this encounter Visit Diagnoses Diagnosis related condition, antepartum- Primary related condition, antepartum documented in this encounter Care Teams Bag Filler Relationship Specialty Start Date End Date Mattie Vasques MD [facility] & [address] [address] PCP - General Family Medicine 02/21/24 documented as of this encounter
--- OUTSIDE RECORDS SUMMARY | 2024-04-27 15:18 | XMS_ITS | Encounter Summary ---
Author Organization [place] Address [facility] [place] [address] Care Team Providers Care Cotton Program Technician Name Role Phone Mattie Vasques MD Primary Care Provider + Reason for Visit * Reason Comments Ultrasound TV- short cervix on outside ultrasound Encounter Details Date Type Department Care Team (Late st Contact Info) Description 02/22/2024 PRE VISIT [facility] [place] [address] [place] [address] Dyan Ch, RN Ultrasound (TV- short cervix [...] on filedocumented in this encounter Care Teams Cotton Program Technician Relationship Specialty Start Date End Date Mattie Vasques MD [facility] [address] [place] [address] PCP - General Family Medicine 02/21/24 documented as of this encounter
--- OUTSIDE RECORDS SUMMARY | 2024-04-27 15:18 | XMS_ITS | Encounter Summary ---
Author Organization [place] Address [address] [facility] [place] [address] Care Team Providers Care Assistant Winemaker Name Role Phone Mattie Vasques MD Primary Care Provider + Reason for Referral * Diagnostic Imaging Ultrasound (Routine) - Pending Review Specialty Diagnoses / Procedures Referred By Contac t Referred To Contact Radiology. Diagnoses Short cervix affecting Procedures [facility] US OB Transvaginal Vicki Love MD [address] [place] [address] Referral ID Status Reason Start Date Expiration Date V isits Requested Visits Authorized [id number] Pending Review 03/12/2024 03/12/2025 1 1 Reason for Visit * Reason Comments Ultrasound TV- Short Cervix Encounter Details Date Type Department Care Team (Late st Contact Info) Description 03/12/2024 4:00 PM CDT Office Visit [facility] Maternal Medicine Center [place] [address] [place] [address] Amilcar Dickerson MD [address] [place] [address] Khadra Ballesteros MD [address] [place] [address] Vicki Love MD [address] [place] [address] Short cervix affecting (Primary Dx); Multigravida of [...] Parra RN - 03/12/2024 4:00 PM CDT ash conveyor operator used via IPAD during MFM appointment. Patient denies pain, contractions, leaking of fluid, or bleeding. SBAR given to MFM MD, see their note in Epic. documented in this encounter Plan of Treatment Scheduled Orders Name Type Priority Associated Diagnoses Orde r Schedule MFM US OB Transvaginal Imaging Routine Short cervix affecting Expected: 03/26/2024 (Approximate), Expires: 01/09/2025 documented as of this encounter Visit Diagnoses Diagnosis Short cervix affecting - Primary Cervical shortening, unspecified as to episode of care or not applicable Multigravida of advanced maternal age in second trimester documented in this encounter Care Teams Assistant Winemaker Relationship Specialty Start Date End Date Mattie Vasques MD [facility] [address] [place] [address] PCP - General Family Medicine 02/21/24 documented as of this encounter
--- OUTSIDE RECORDS SUMMARY | 2024-04-27 15:18 | XMS_ITS | Encounter Summary ---
Author Organization [place] Address [address] [place] [address] Care Team Providers Care Vacuum Cleaner Repairer Name Role Phone Mattie Vasques MD Primary Care Provider + Reason for Referral * Diagnostic Imaging Ultrasound (Routine) - Pending Review Specialty Diagnoses / Procedures Referred By Contac t Referred To Contact Radiology. Diagnoses Short cervix affecting Procedures [facility] US OB Transvaginal Amilcar Dickerson MD [address] [address] Referral ID Status Reason Start Date Expiration Date V isits Requested Visits Authorized [id number] Pending Review 02/26/2024 02/25/2025 1 1 Reason for Visit * Diagnostic Imaging Ultrasound (Routine) - Pending Review Specialty Diagnoses / Procedures Referred By Contac t Referred To Contact Radiology. Diagnoses Short cervix affecting Procedures [facility] US OB Transvaginal Amilcar Dickerson MD [address] [place] [address] Referral ID Status Reason Start Date Expiration Date V isits Requested Visits Authorized [id number] Pending Review 02/26/2024 02/25/2025 1 1 Encounter Details Date Type Department Care Team (Latest Contact Info) Description 03/12/2024 3:25 PM CDT - 03/12/2024 11:59 PM CDT Hospital Encounter [facility] Maternal Medicine Center [place] [address] [place] [address] Amilcar Dickerson MD [address] [place] [address] Khadra Ballesteros MD [address] [place] [address] Short cervix affecting Discharge Disposition: Home [...] on file documented as of this encounter Procedures Procedure Name Priority Date/Time Associated Diagnosis Comments [facility] US OB TRANSVAGINAL Routine 03/12/2024 3:57 PM CDT Short cervix affecting documented in this encounter Results * [facility] US OB Transvaginal (03/12/2024 3:57 PM [...] ? Study Date: ??03/12/2024 3:32pm Pat. NO: ??[id number] ?Referring ??MD: WANDY COMBS Site: ? [place]erry Hand: Nadia Friend RDMS : ??1985 ?Age: ?? [...] length surveillance as previously recommended, alternating between [facility] and [facility]. Return to primary provider for [...] medical record, and communicating with other health caretaker grounds and/or care coordination. Procedure Note Amilcar Dickerson MD / Vicki Love MD - 03/14/2024 Cx TV ----- Pat. Name: JOSE SMITH Study Date: 03/12/2024 3:32pm Pat. NO: [id number] Referring MD: WANDY COMBS Site: [place]erry Hand: Nadia Friend RDMS : 1985 Age: 38 [...] cervical length surveillance as previously recommended,alternating between [facility] and [facility]. Return to primary provider for [...] electronic medical record, andcommunicating with other health caretaker grounds and/or carecoordination. IMPRESSION ----- 1. Burrows at 21w 6d gestational age. 2. The amniotic fluid measurement is within normal limits. 3. On transvaginal imaging the cervix is 2.4 cm and appears closed. Amilcar Dickerson MD [facility] US ORDERABLE S documented in this encounter Visit Diagnoses Diagnosis Short cervix affecting Cervical shortening, unspecified as to episode of care or not applicable documented in this encounter Care Teams Vacuum Cleaner Repairer Relationship Specialty Start Date End Date Mattie Vasques MD [facility] [address] [place] [address] PCP - General Family Medicine 02/21/24 documented as of this encounter
--- OUTSIDE RECORDS SUMMARY | 2024-04-27 15:18 | XMS_ITS | Encounter Summary ---
Author Organization [place] Address [address] [place] [address] Care Team Providers Care Grocery Clerk Selling Name Role Phone Mattie Vasques MD Primary [...] on filedocumented in this encounter Care Teams Grocery Clerk Selling Relationship Specialty Start Date End Date Mattie Vasques MD [facility] [address] [place] [address] PCP - General Family Medicine 02/21/24 documented as of this encounter
--- OUTSIDE RECORDS SUMMARY | 2024-04-27 15:18 | XMS_ITS | Encounter Summary ---
Author Organization [place] Address [address] [place] [address] Care Team Providers Care Server Name Role Phone Mattie Vasques MD Primary Care Provider + Reason for Referral * Diagnostic Imaging Ultrasound (Routine) - Pending Review Specialty Diagnoses / Procedures Referred By Contac t Referred To Contact Radiology. Diagnoses related condition, antepartum Procedures [facility] US OB Transvaginal Anna William MD [facility] [address] [place] [address] Referral ID Status Reason Start Date Expiration Date V isits Requested Visits Authorized [id number] Pending Review 02/21/2024 02/20/2025 1 1 Reason for Visit * Diagnostic Imaging Ultrasound (Routine) - Pending Review Specialty Diagnoses / Procedures Referred By Contac t Referred To Contact Radiology. Diagnoses related condition, antepartum Procedures [facility] US OB Transvaginal Anna William MD [facility] [address] [place] [address] Referral ID Status Reason Start Date Expiration Date V isits Requested Visits Authorized [id number] Pending Review 02/21/2024 02/20/2025 1 1 Encounter Details Date Type Department Care Team (Latest Contact Info) Description 02/26/2024 8:45 AM CDT - 02/26/2024 11:59 PM CDT Hospital Encounter [facility] [place] [address] [place] [address] Amilcar Dickerson MD [address] [place], [place] [address] related condition, antepartum Discharge Disposition: Home or [...] Procedure Name Priority Date/Time Associated Diagnosis Comments [facility] US OB TRANSVAGINAL Routine 02/26/2024 9:43 AM CDT related condition, antepartum documented in this encounter Results * [facility] US OB Transvaginal (02/26/2024 9:43 AM [...] ? Study Date: ??02/26/2024 8:56am Pat. NO: ??[id number] ?Referring ??MD: ANNA WILLIAM Site: ? Manager Material: Jillian Dias RDMS : ??1985 ?Age: ?? [...] CL assessment until 24 0/7 weeks with [facility] in 1 week and at [facility] in 2 weeks. Continue with vaginal progesterone. Procedure Note Amilcar Dickerson MD - 02/27/2024 Cx TV ----- Pat. Name: JOSE SMITH Study Date: 02/26/2024 8:56am Pat. NO: [id number] Referring MD: ANNA WILLIAM Site: Manager Material: Jillian Dias RDMS : 1985 Age: 38 [...] CL assessment until 24 0/7 weeks with [facility] in 1week and at [facility] in 2 weeks. Continue with vaginal progesterone. IMPRESSION ----- This is an active single fetus with behavior appropriate for gestationalage at 19w5d, with history of 3 term births, 4 first trimester Sab and onesecond trimester loss after trauma and bleeding. Normal amniotic fluid volume is measured. Transabdominal and transvaginal views of the cervix and the cervicallength were obtained. Anna William MD [facility] US ORDERAB LES documented in this encounter Visit Diagnoses Diagnosis related condition, antepartum documented in this encounter Care Teams Server Relationship Specialty Start Date End Date Mattie Vasques MD [facility] & [address] [address] PCP - General Family Medicine 02/21/24 documented as of this encounter
--- OUTSIDE RECORDS SUMMARY | 2024-04-27 15:18 | XMS_ITS | Encounter Summary ---
Author Organization [place] Address [address] [place] [address] Care Team Providers Care Internet Sourcer Name Role Phone Mattie Vasques MD Primary Care Provider + Reason for Referral * Diagnostic Imaging Ultrasound (Routine) - Pending Review Specialty Diagnoses / Procedures Referred By Chele rm Referred To Contact Radiology. Diagnoses Short cervix affecting Procedures [facility] US OB Transvaginal Amilcar Dickerson MD [address] [address] Referral ID Status Reason Start Date Expiration Date V isits Requested Visits Authorized [id number] Pending Review 02/26/2024 02/25/2025 1 1 Reason for Visit * Reason Comments Ultrasound TV- short cervix on outside ultrasound Encounter Details Date Type Department Care Team (Late st Contact Info) Description 02/26/2024 9:15 AM CDT Office Visit [facility] M[facility] Medicine [facility] [place] [address] [place] [address] Amilcar Dickerson MD [address] [facility] [address] [place] [address] Short cervix affecting (Primary Dx) [...] RN - 02/26/2024 9:15 AM CDT Ipad industrial refrigeration mechanic used for [facility] appt. Pt at [facility] for ultrasound- see detailed report under imaging tab. Pt reports positive movement, denies bleeding, cramping, loss of fluid or other concerns. SBAR given to MD. Per Dr. Dickerson- pt to be seen by M at [facility] in 1 and 3 weeks and at [facility] in 2 weeks. Plaster Molder called [facility] and spoke with Nila who will await orders from referring physician and call pt to schedule. Order placed for TV ultrasound in 2 weeks and pt instructed by to stop at desk and schedule documented in this encounter Plan of Treatment Not on file documented as of this encounter Results * [facility] US OB Transvaginal (03/12/2024 3:57 PM CDT) [...] ? Study Date: ??03/12/2024 3:32pm Pat. NO: ??[id number] ?Referring ??MD: WANDY COMBS Site: ? Finisher Fine Diamond Dies: Nadia Friend RDMS : ??1985 ?Age: ?? [...] length surveillance as previously recommended, alternating between [facility] and [facility]. Return to primary provider for continued care. [...] medical record, and communicating with other health child day care center worker and/or care coordination. Procedure Note Amilcar Dickerson MD / Vicki Love MD - 03/14/2024 Cx TV ----- Pat. Name: JOSE SMITH Study Date: 03/12/2024 3:32pm Pat. NO: [id number] Referring MD: WANDY COMBS Site: Finisher Fine Diamond Dies: Nadia Friend RDMS : 1985 Age: 38 [...] cervical length surveillance as previously recommended,alternating between [facility] and [facility]. Return to primary provider for continued care. [...] electronic medical record, andcommunicating with other health child day care center worker and/or carecoordination. IMPRESSION ----- 1. Burrows at 21w 6d gestational age. 2. The amniotic fluid measurement is within normal limits. 3. On transvaginal imaging the cervix is 2.4 cm and appears closed. Amilcar Dickerson MD [facility] US ORDERABLE S documented in this encounter Visit Diagnoses Diagnosis Short cervix affecting - Primary Cervical shortening, unspecified as to episode of care or not applicable Short cervix affecting Cervical shortening, unspecified as to episode of care or not applicable documented in this encounter Care Teams Internet Sourcer Relationship Specialty Start Date End Date Mattie Vasques MD [facility] [address] [place] [address] PCP - General Family Medicine 02/21/24 documented as of this encounter
--- OUTSIDE RECORDS SUMMARY | 2024-04-27 15:18 | XMS_ITS | Clinical Summary ---
Author Organization [place] Address [facility] [place] [address] Care Team Providers Care Scanning Tech Name Role Phone Mattie Vasques MD Primary Care Provider + Amilcar Dickerson MD Unavailable [phone] Encounters Date Type Department Care Team Description 03/12/2024 4:00 PM CDT Office Visit [facility] [address] [facility] [address] [place] [phone] Amilcar Dickerson MD Jones, MD Kate Wheat Sereen, MD Short cervix affecting (Primary Dx); Multigravida of advanced maternal age in second trimester 03/12/2024 3:25 PM CDT - 03/12/2024 11:59 PM CDT Hospital Encounter [facility] [address] [facility] [address] [place] [phone] Amilcar Dickerson MD Jones, Khadra Worrell MD Short cervix affecting Discharge Disposition: Home or Self Care 03/12/2024 Travel 02/26/2024 9:15 AM CDT Office Visit [facility] [address] [place] [address] Amilcar Dickerson MD Short cervix affecting (Primary Dx) 02/26/2024 8:45 AM CDT - 02/26/2024 11:59 PM CDT Hospital Encounter [facility] [address] [place] [address] Amilcar Dickerson MD related condition, antepartum Discharge Disposition: Home or Self Care 02/26/2024 Travel 02/22/2024 PRE VISIT [facility] Medicine [facility] [address] [place] [address] Dyan Ch RN Ultrasound (TV- short cervix on outside ultrasound) 02/21/2024 Transcribe Orders [facility] Maternal Medicine [facility] [address] [facility] [address] [place] [address] Anna William MD related condition, antepartum (Primary Dx) from Last 3 Months Social History Tobacco Use Types Packs/Day Years Used Date Smoking Tobacco: Never Assessed Estimated Date of Delivery Comme nts Yes 07/17/2024 Based on Ultraso und Sex and Gender Information Value Date Recorded Sex Assigned at Not on file Gender Identity Not on file Sexual Orientation Not on file Plan of Treatment Health Maintenance Due Date Last Done Comments ADVANCE CARE PLANNING 1985 ANNUAL REVIEW OF HM ORDERS 1985 GLUCOSE 1985 YEARLY PREVENTIVE VISIT 1985 HIV SCREENING 2000 HEPATITIS C SCREENING 2003 HEPATITIS B IMMUNIZATION (1 of 3 - 19+ 3-dose series) 2004 PAP 2006 DTAP/TDAP/TD IMMUNIZATION (1 - Tdap) 2010 PHQ-2 (once per calendar year) 2023 MATERNAL SCREENING DISCUSSION 12/20/2023 COVID-19 Vaccine (1 - 2023-2 5 season) 2024 INFLUENZA VACCINE (#1) 2024 OBGCT [...] Procedure Name Priority Date/Time Associated Diagnosis Comments [facility] US OB TRANSVAGINAL Routine 03/12/2024 3:57 PM CDT Short cervix affecting [facility] US OB TRANSVAGINAL Routine 02/26/2024 9:43 AM CDT related condition, antepartum from Last 3 Months Results * [facility] US OB Transvaginal (03/12/2024 3:57 [...] ? Study Date: ??03/12/2024 3:32pm Pat. NO: ??[id number] ?Referring ??: ANNA WILLIAM Site: ? Drafter Construction: Nadia Friend RDMS : ??1985 ?Age: ?? [...] length surveillance as previously recommended, alternating between [facility] and [facility]. Return to primary provider for continued care. [...] medical record, and communicating with other health rn medicare and/or care coordination. Procedure Note Amilcar Dickerson MD / Vicki Love MD - 03/14/2024 Cx TV ----- Pat. Name: JOSE SMITH Study Date: 03/12/2024 3:32pm Pat. NO: [id number] Referring MD: ANNA WILLIAM Site: Drafter Construction: Nadia Friend RDMS : 1985 Age: 38 [...] cervical length surveillance as previously recommended,alternating between [facility] and [facility]. Return to primary provider for continued care. [...] electronic medical record, andcommunicating with other health rn medicare and/or Candid ioination. IMPRESSION ----- 1. Burrows at 21w 6d gestational age. 2. The amniotic fluid measurement is within normal limits. 3. On transvaginal imaging the cervix is 2.4 cm and appears closed. Amilcar Dickerson MD [facility] ORDERABLE S from Last 3 Months Care Teams Scanning Tech Relationship Specialty Start Date End Date Mattie Vasques MD [facility] [address] [place] [address] PCP - General Family Medicine 02/21/24 Amilcar Dickerson MD [address] [place], [place] [phone] Assigned OBGYN Provider 04/01/24
--- OUTSIDE RECORDS SUMMARY | 2024-04-27 15:19 | XMS_ITS | Data Portability ---
Author Organization [facility] - Olivia coleman [facility] Address [address] [place] [address] [place] [address] Assessment No assessment recorded. Plan of Treatment [...] Modified By Organization Details Last Modified Time 04/06/202145382 take invermectin 3 mg on days 1 & 2 & 8, call if not better, clean apt as directed by internet eulalia Not available 04/06/2021 19:36:28 Reason for Referral Property Appraiser/care Coordinato r Referral for Abnormal cervical Papanicolaou smear Referral to complete JUNIE paperwork prior to referral to [facility] for colposcopy Referring Physician: [facility], Encounter Date: 05/12/2021 Unit Director Referral for Ab normal cervical Papanicolaou smear JUNIE Referral to [facility] for Colposcopy Omani speaking Referring Physician: [facility], Encounter Date: 05/12/2021 Results Created Date Observation Date Name Description Value Unit Range Abnormal Flag Note LastModifiedBy Organization Detail LastModifiedTime 04/21/20 21 04/21/2021 pap, LB + HR HPV HPV type 16 positi ve negati ve abnormal Not Available [facility] [address], [place], [address], 04/26/2021 13:08:30 04/21/20 21 04/21/2021 pap, LB + HR HPV cytology unsati sfacto ry abnormal Not Available Not Available 14:20:46 Result Notes None recorded. Problems Name Problem SNOMED Code Status Onset Date Resolution Date Notes Provider Name and Address Organization Details Recorded Time Polyp of cervix 96628454 Active 021 Radha Conway NP [address] [place], [address] , [facility] 04/21/2021 18:31:23 Problem Notes None recorded. Procedures Surgical History Date Name Laterality Status Provider Name and Address Organization Details Recorded Time IUD Removal completed Radha Conway NP [address] [place], [address], [facility] 04/21/2021 17:32:55 Imaging Results None recorded. Procedure Notes None recorded. Medical Equipment None Reported. Allergies No known drug allergies Medications Not known to be on any medication Vitals Date Recorded Body weight Provider Name an d Address Organization Details Last Updated DateTime 04/06/2021 65702.71 g Phill Lockwood [address] [place] [address], [phone] Bl[facility] 04/06/2021 19:32:47 Date Recorded Body height Body mass index (BMI) Body weight Heart rate Systolic blood pressure Diastolic blood pressure Provider Name and Address Organization Details Last Updated DateTime 148.59 cm 23.7 kg/m2 67226.2 8 g 78 /min 104 mm[Hg] 67 mm[Hg] Radha Conway NP [address] [place], [address], [facility] via680 14:45:32 Social History None recorded. Functional Status None recorded. Mental Status None recorded. Family History Relationship Description Onset Age of this Age Resolved Age Notes LastModified by Organization Details LastModified Time Mother Hypertensive disorder [email or web address] Not available 2020 17:27:17 Notes:Son with heart conditi on Medical History No medical history recorded. Gynecological HistoryNo gynecological history recorded. Obstetrics History GPAL:G 4 P 3 0 1 3 Type Value Full Term 3 Spontaneous 1 Living 3 Total 4 Past Encounters Encounter ID Performer Location Encounter Start Date Encounter Closed Date Diagnosis/Indication Diagnosis SNOMED-CT Code Diagnosis ICD10 Code [id number] Tulio Jimenez MD [facility] [address] [place] [address] 04/06/2021 18:05:08 04/06/2021 19:07:53 Pruritic disorder 003435691 L29.9 [id number] Radha Conway NP [facility] [address] [place] [address] 04/21/2021 14:36:36 04/21/2021 15:22:32 Irregular periods 09898167 N92.6 Polyp of cervix 09123138 N84.1 Removal of intrauterine device 64205565 Z30.432 Screening for malignant neoplasm of cervix 778929968 Z12.4 Health Concerns Section Related Observation LastModified [...] NKA, not PG Tulio Jimenez MD [address] [place], [address], [facility] 04/06/2021 19:36:48 04/21/2021 text/html HPI Notes: 36 y.o. presents for removal of Copper IUD placed in [facility] 02/2016 Desires removal due to 6-month [...] excessive thirst, headache, dry skin. Radha Conway, COLORING ROOM MAN [address] [place], [address], [facility] 04/21/2021 18:31:28 OBGyn Episode No OBEpisode recorded.
== END 2024-04-24 15:34 | disposition home or self-care (01) ==
LOC: NFLDREF 04-27 15:16
PROVIDERS: PCP Family Medicine; Referring Provider Family Medicine; Visit Provider Obstetrics & Gynecology
DX: Z34.90 Encounter for supervision of normal pregnancy, unspecified, unspecified trimester (principal)
CPT/HCPCS: 86592

== ENCOUNTER 2024-05-13 12:50 | Outpatient (CLI) | payer OTHER, SELFPAY ==
--- OUTSIDE RECORDS SUMMARY | 2024-05-13 12:53 | XMS_ITS | Referral Summary ---
Author Organization [place] Address [facility] [place] [address] Care Team Providers Care Canning Machine Operator Name Role Phone Mattie Vasques MD Primary Care Provider + Amilcar Dickerson MD Unavailable Encounters Date Type Department Care Team Description 03/12/2024 Travel 03/12/2024 4:00 PM CDT Office Visit [facility] [address] [facility] [address] [place] [phone] Amilcar Dickerson MD Jones, MD Kate Wheat Sereen, MD Short cervix affecting (Primary Dx); Multigravida of advanced maternal age in second trimester 03/12/2024 3:25 PM CDT - 03/12/2024 11:59 PM CDT Hospital Encounter [facility] [address] [facility] [address] [place] [phone] Amilcar Dickerson MD Jones, Khadra Worrell MD Short cervix affecting Discharge Disposition: Home or Self Care 02/26/2024 Travel 02/26/2024 9:15 AM CDT Office Visit [facility] [address] [place] [address] Amilcar Dickerson MD Short cervix affecting (Primary Dx) 02/26/2024 8:45 AM CDT - 02/26/2024 11:59 PM CDT Hospital Encounter [facility] [place] [facility] [address] [place] [address] Amilcar Dickerson MD related condition, antepartum Discharge Disposition: Home or Self Care 02/22/2024 PRE VISIT [facility] [address] [place] [address] Dyan Ch RN Ultrasound (TV- short cervix on outside ultrasound) 02/21/2024 Transcribe Orders [facility] [address] [facility] [address] [place] [phone] Anna William MD related condition, antepartum (Primary Dx) from Last 3 Months Social History Tobacco Use Types Packs/Day Years Used Date Smoking Tobacco: Never Assessed Estimated Date of Delivery Comme nts Yes 07/17/2024 Based on Ultraso und Sex and Gender Information Value Date Recorded Sex Assigned at Not on file Legal Sex Female 3:22 PM CDT Gender Identity Not on file Sexual Orientation [...] ? Study Date: ??03/12/2024 3:32pm Pat. NO: ??[id number] ?Referring ??MD: ANNA WILLIAM Site: ? Greenhouse Specialist: Nadia Friend RDMS : ??1985 ?Age: ?? [...] length surveillance as previously recommended, alternating between [facility] and [facility]. Return to primary provider for continued [...] medical record, and communicating with other health pet care associate and/or care coordination. Procedure Note Amilcar Dickerson MD / Vicki Love MD - 03/14/2024 Cx TV ----- Pat. Name: JOSE SMITH Study Date: 03/12/2024 3:32pm Pat. NO: [id number] Referring MD: ANNA WILLIAM Site: Greenhouse Specialist: Nadia Friend RDMS : 1985 Age: 38 [...] cervical length surveillance as previously recommended,alternating between [facility] and [facility]. Return to primary provider for continued [...] electronic medical record, andcommunicating with other health pet care associate and/or carecoordination. IMPRESSION ----- 1. Burrows at 21w 6d gestational age. 2. The amniotic fluid measurement is within normal limits. 3. On transvaginal imaging the cervix is 2.4 cm and appears closed. us Amilcar Dickerson MD [facility] US ORDERABLES Edited Result - Final from Last 3 Months Insurance [facility] Social Care Teams Canning Machine Operator Relationship Specialty Start Date End Date Mattie Vasques MD [facility] [address] [place] [address] PCP - General Family Medicine 02/21/24 Amilcar Dickerson MD [address] [place] [address] Assigned OBGYN Provider 04/01/24
--- OUTSIDE RECORDS SUMMARY | 2024-05-13 12:53 | XMS_ITS | Encounter Summary ---
Author Organization [place] Address [facility] [place] [address] Care Team Providers Care Vice President Mission Integration Name Role Phone Mattie Vasques MD Primary Care Provider + Reason for Referral * Diagnostic Imaging Ultrasound (Routine) - Pending Review Specialty Diagnoses / Procedures Referred By Contac t Referred To Contact Radiology. Diagnoses Short cervix affecting Procedures [facility] US OB Transvaginal Vicki Love MD [address] [place] [address] Phone: tel: fax: Referral ID Status Reason Start Date Expiration Date V isits Requested Visits Authorized [id number] Pending Review 03/12/2024 03/12/2025 1 1 Reason for Visit * Reason Comments Ultrasound TV- Short Cervix Encounter Details Date Type Department Care Team (Late st Contact Info) Description 03/12/2024 4:00 PM CDT Office Visit [facility] [place] [address] [facility] [address] [place] [address] Amilcar Dickerson MD [address] [place] [address] Khadra Ballesteros MD [address] [place] [address] Vicki Love MD [address] [place] [address] Short cervix affecting (Primary Dx); Multigravida of [...] report from ViewPoint program under imaging tab. Vicik Love M.D. Maternal -Medicine Specialist documented in this encounter Nursing Notes * Katharine Parra RN - 03/12/2024 4:00 PM CDT orchestra conductor used via IPAD during MFM appointment. Patient denies pain, contractions, leaking of fluid, or bleeding. SBAR given to MFM MD, see their note in Epic. documented in this encounter Plan of Treatment Scheduled Orders Name Type Priority Associated Diagnoses Orde r Schedule [facility] US OB Transvaginal Imaging Routine Short cervix affecting Expected: 03/26/2024 (Approximate), Expires: 01/09/2025 documented as of this encounter Visit Diagnoses Diagnosis Short cervix affecting - Primary Cervical shortening, unspecified as to episode of care or not applicable Multigravida of advanced maternal age in second trimester documented in this encounter Care Teams Vice President Mission Integration Relationship Specialty Start Date End Date Mattie Vasques MD [facility] & [address] [address] PCP - General Family Medicine 8/14/24 documented as of this encounter
--- OUTSIDE RECORDS SUMMARY | 2024-05-13 12:53 | XMS_ITS | Encounter Summary ---
Author Organization [place] Address [address] [place] [address] Care Team Providers Care Building Materials Sales Attendant Name Role Phone Mattie Vasques MD Primary Care Provider + Reason for Referral * Diagnostic Imaging Ultrasound (Routine) - Pending Review Specialty Diagnoses / Procedures Referred By Contac t Referred To Contact Radiology. Diagnoses related condition, antepartum Procedures [facility] US OB Transvaginal Anna William MD [facility] [address] [place] [address] Phone: tel: fax: Referral ID Status Reason Start Date Expiration Date V isits Requested Visits Authorized [id number] Pending Review 02/21/2024 02/20/2025 1 1 * Consultation (Routine: Next available opening) - Pending Review Specialty Diagnoses / Procedures Referred By Contac t Referred To Contact Diagnoses related condition, antepartum Anna William MD [facility] [address] [place] [address] Phone: tel: fax: [facility] [place] [address] [place] [address] Phone: tel: fax: Referral ID Status Reason Start Date Expiration Date V isits Requested Visits Authorized [id number] Pending Review 02/21/2024 02/20/2025 1 1 Question Answer Preferred Location: [facility]FM - [place] FAUSTO 07/17/2024 Ultrasound MFM Recommendation US PROC NONE MFM Issue OTHER (enter details in Comments) - cervical shortening MARTINEZ PAUL Consultation (unrelated to Ultrasound findings): No Inflammatory Bowel Disease Clinic: Joint MFM and GI Consultation: No Chronic Kidney Disease: Joint MFM and Nephrology Consultation No Cardio-Obstetrics: Joint MFM and Cardiology Consultation No Genetic Counseling Consultation: No fax [facility] Anna William [phone] Comments cervical shortening Encounter Details Date Type Department Care Team (Late st Contact Info) Description 02/21/2024 Transcribe Orders [facility] M[facility] [place] [address] [place] [address] Anna William MD [facility] AND [address] [address] related condition, antepartum (Primary Dx) Social History Tobacco Use Types Packs/Day Years Used Date Smoking Tobacco: Never Assessed Comments Unknown Sex and Gender Information Value Date Recorded [...] ? Study Date: ??02/26/2024 8:56am Pat. NO: ??[id number] ?Referring ??MD: ANNA WILLIAM Site: ? Ham Marker: Jillian Dias RDMS : ??1985 ?Age: ?? [...] CL assessment until 24 0/7 weeks with [facility] in 1 week and at [facility] in 2 weeks. Continue with vaginal progesterone. Procedure Note Amilcar Dickerson MD - 02/27/2024 Cx TV ----- Pat. Name: JOSE SMITH Study Date: 02/26/2024 8:56am Pat. NO: [id number] Referring MD: ANNA WILLIAM Site: Ham Marker: Jillian Dias RDMS : 1985 Age: 38 [...] [facility] in 2 weeks. Continue with vaginal progesterone. IMPRESSION ----- This is an active single fetus with behavior appropriate for gestationalage at 19w5d, with history of 3 term births, 4 first trimester Sab and onesecond trimester loss after trauma and bleeding. Normal amniotic fluid volume is measured. Transabdominal and transvaginal views of the cervix and the cervicallength were obtained. us Anna William MD [facility] US ORDERABLES Edit ed Result - Final documented in this encounter Visit Diagnoses Diagnosis related condition, antepartum- Primary related condition, antepartum documented in this encounter Care Teams Building Materials Sales Attendant Relationship Specialty Start Date End Date Hernberg, Mattie Marie, MD [facility] [place] [place] [address] PCP - General Family Medicine 02/21/24 documented as of this encounter
--- OUTSIDE RECORDS SUMMARY | 2024-05-13 12:53 | XMS_ITS | Encounter Summary ---
Author Organization [place] Address [address] [place] [address] Care Team Providers Care Boat Master Name Role Phone Mattie Vasques MD Primary Care Provider + Reason for Referral * Diagnostic Imaging Ultrasound (Routine) - Pending Review Specialty Diagnoses / Procedures Referred By Chele rm Referred To Contact Radiology. Diagnoses Short cervix affecting Procedures [facility] US OB Transvaginal Amilcar Dickerson MD [address] [address] Phone: tel: fax: Referral ID Status Reason Start Date Expiration Date V isits Requested Visits Authorized [id number] Pending Review 02/26/2024 02/25/2025 1 1 Reason for Visit * Diagnostic Imaging Ultrasound (Routine) - Pending Review Specialty Diagnoses / Procedures Referred By Chele rm Referred To Contact Radiology. Diagnoses Short cervix affecting Procedures [facility] US OB Transvaginal Amilcar Dickerson MD [address] [place] [address] Phone: tel: fax: Referral ID Status Reason Start Date Expiration Date V isits Requested Visits Authorized [id number] Pending Review 02/26/2024 02/25/2025 1 1 Encounter Details Date Type Department Care Team (Latest Contact Info) Description 03/12/2024 3:25 PM CDT - 03/12/2024 11:59 PM CDT Hospital Encounter [facility] [place] [address] [place] [address] Amilcar Dickerson MD [address] [place] [address] Khadra Ballesteros MD [address] [place] [address] Short cervix affecting Discharge Disposition: [...] Name Priority Date/Time Associated Diagnosis Comments [facility] US OB TRANSVAGINAL Routine 03/12/2024 3:57 PM CDT Short cervix affecting documented in this encounter Results * [facility] US OB Transvaginal (03/12/2024 3:57 PM [...] ? Study Date: ??03/12/2024 3:32pm Pat. NO: ??[id number] ?Referring ??MD: WANDY COMBS Site: ? Metal Neutralizer: Nadia Friend RDMS : ??1985 ?Age: ?? [...] length surveillance as previously recommended, alternating between [facility] and [facility]. Return to primary [...] medical record, and communicating with other health long term acute care registered nurse and/or care coordination. Procedure Note Amilcar Dickerson MD / Vicki Love MD - 03/14/2024 Cx TV ----- Pat. Name: JOSE SMITH Study Date: 03/12/2024 3:32pm Pat. NO: [id number] Referring MD: WANDY COMBS Site: Metal Neutralizer: Nadia Friend RDMS : 1985 Age: 38 [...] cervical length surveillance as previously recommended,alternating between [facility] and [facility]. Return to primary [...] electronic medical record, andcommunicating with other health long term acute care registered nurse and/or carecoordination. IMPRESSION ----- 1. Burrows at 21w 6d gestational age. 2. The amniotic fluid measurement is within normal limits. 3. On transvaginal imaging the cervix is 2.4 cm and appears closed. us Amilcar Dickerson MD [facility] US ORDERABLES Edited Result - Final documented in this encounter Visit Diagnoses Diagnosis Short cervix affecting Cervical shortening, unspecified as to episode of care or not applicable documented in this encounter Care Teams Boat Master Relationship Specialty Start Date End Date Mattie Vasques MD [facility] & [address] [address] PCP - General Family Medicine 02/21/24 documented as of this encounter
--- OUTSIDE RECORDS SUMMARY | 2024-05-13 12:53 | XMS_ITS | Clinical Summary ---
Author Organization [place] Address Formerly [facility] [place] [address] Care Team Providers Care Animal Cop Name Role Phone Mattie Vasques MD Primary Care Provider + Amilcar Dickerson MD Unavailable [phone] Encounters Date Type Department Care Team Description 03/12/2024 4:00 PM CDT Office Visit [facility] [address] [facility] [address] [place] [phone] Amilcar Dickerson MD Jones, MD Kate Wheat Sereen, MD Short cervix affecting (Primary Dx); Multigravida of advanced maternal age in second trimester 03/12/2024 3:25 PM CDT - 03/12/2024 11:59 PM CDT Hospital Encounter [facility] [address] [facility] [address] [place] [phone] Amilcar Dickerson MD Jones, Khadra Worrell MD Short cervix affecting Discharge Disposition: Home or Self Care 03/12/2024 Travel 02/26/2024 9:15 AM CDT Office Visit [facility] [address] [place] [address] Amilcar Dickerson MD Short cervix affecting (Primary Dx) 02/26/2024 8:45 AM CDT - 02/26/2024 11:59 PM CDT Hospital Encounter [facility] Maternal Medicine [facility] [address] [place] [address] Amilcar Dickerson MD related condition, antepartum Discharge Disposition: Home or Self Care 02/26/2024 Travel 02/22/2024 PRE VISIT [facility] Maternal Medicine [facility] [address] [place] [address] Dyan Ch RN Ultrasound (TV- short cervix on outside ultrasound) 02/21/2024 Transcribe Orders [facility] Maternal Medicine [facility] [address] [facility] [place] [address] Anna William MD related condition, antepartum (Primary [...] Procedure Name Priority Date/Time Associated Diagnosis Comments [facility] US OB TRANSVAGINAL Routine 03/12/2024 3:57 PM CDT Short cervix affecting [facility] US OB TRANSVAGINAL Routine 02/26/2024 9:43 AM CDT related condition, antepartum from Last 3 Months Results * [facility] US OB Transvaginal (03/12/2024 3:57 PM [...] ? Study Date: ??03/12/2024 3:32pm Pat. NO: ??[id number] ?Referring ??: ANNA WILLIAM Site: ? Ammonium Sulfate Operator: Nadia Friend : ??1985 ?Age: ?? 38 ----- INDICATION [...] length surveillance as previously recommended, alternating between [facility] and [facility]. Return to primary provider for continued care. [...] record, and communicating with other health child care associate and/or care coordination. Procedure Note Amilcar Dickerson MD / Vicki Love MD - 03/14/2024 Cx TV ----- Pat. Name: JOSE SMITH Study Date: 03/12/2024 3:32pm Pat. NO: [id number] Referring MD: ANNA WILLIAM Site: Ammonium Sulfate Operator: Nadia Friend RDMS : 1985 Age: 38 [...] cervical length surveillance as previously recommended,alternating between [facility] and [facility]. Return to primary provider for continued care. [...] medical record, andcommunicating with other health child care associate and/or carecoordination. IMPRESSION ----- 1. Burrows at 21w 6d gestational age. 2. The amniotic fluid measurement is within normal limits. 3. On transvaginal imaging the cervix is 2.4 cm and appears closed. us Amilcar Dickerson MD [facility] US ORDERABLES Edited Result - Final from Last 3 Months Insurance [employer] Care Teams Animal Cop Relationship Specialty Start Date End Date Mattie Vasques MD [address] [address] PCP - General Family Medicine 02/21/24 Amilcar Dickerson MD [address] [place] [address] Assigned OBGYN Provider 04/01/24
--- OUTSIDE RECORDS SUMMARY | 2024-05-13 12:53 | XMS_ITS | Encounter Summary ---
Author Organization [place] Address [facility] [place] [address] Care Team Providers Care Waiter/Waitress Buffet Name Role Phone Mattie Vasques MD Primary Care Provider + Reason for Visit * Reason Comments Ultrasound TV- short cervix on outside ultrasound Encounter Details Date Type Department Care Team (Late st Contact Info) Description 02/22/2024 PRE VISIT [facility] [place] [address] [place] [address] Dyan Ch, RN Ultrasound (TV- short cervix [...] on filedocumented in this encounter Care Teams Waiter/Waitress Buffet Relationship Specialty Start Date End Date Mattie Vasques MD [facility] [address] [place] [address] PCP - General Family Medicine 02/21/24 documented as of this encounter
--- OUTSIDE RECORDS SUMMARY | 2024-05-13 12:53 | XMS_ITS | Encounter Summary ---
Author Organization [place] Address [address] [place] [address] Care Team Providers Care Pan Helper Name Role Phone Mattie Vasques MD Primary Care Provider + Reason for Referral * Diagnostic Imaging Ultrasound (Routine) - Pending Review Specialty Diagnoses / Procedures Referred By Chele rm Referred To Contact Radiology. Diagnoses Short cervix affecting Procedures MFM US OB Transvaginal Amilcar Dickerson MD [address] [facility] [address] [place] [address] Phone: tel: fax: Referral ID Status Reason Start Date Expiration Date V isits Requested Visits Authorized [id number] Pending Review 02/26/2024 02/25/2025 1 1 Reason for Visit * Reason Comments Ultrasound TV- short cervix on outside ultrasound Encounter Details Date Type Department Care Team (Late st Contact Info) Description 02/26/2024 9:15 AM CDT Office Visit [facility] Medicine [facility] [place] [address] [place] [address] Amilcar Dickerson MD [address] [place] [address] Short cervix affecting (Primary Dx) [...] in this encounter Nursing Notes * Dyan Ch RN - 02/26/2024 9:15 AM CDT Ipad certified rehabilitation counselor used for M appt. Pt at [facility] for ultrasound- see detailed report under imaging tab. Pt reports positive movement, denies bleeding, cramping, loss of fluid or other concerns. SBAR given to MD. Per Dr. Dickerson- pt to be seen by MFM at [place] in 1 and 3 weeks and at [facility] in 2 weeks. Clod Puller called [facility] and spoke with Nila who will await [...] ? Study Date: ??03/12/2024 3:32pm Pat. NO: ??[id number] ?Referring ??MD: WANDY COMBS Site: ? Marine Chronometer Assembler: Nadia Friend RDMS : ??1985 ?Age: ?? [...] length surveillance as previously recommended, alternating between [facility] and [facility]. Return to primary provider for continued care. [...] medical record, and communicating with other health career development manager and/or care coordination. Procedure Note Amilcar Dickerson MD / Vicki Love MD - 03/14/2024 Cx TV ----- Pat. Name: JOSE SMITH Study Date: 03/12/2024 3:32pm Pat. NO: [id number] Referring MD: WANDY COMBS Site: Marine Chronometer Assembler: Nadia Friend RDMS : 1985 Age: 38 [...] cervical length surveillance as previously recommended,alternating between [facility] and [facility]. Return to primary provider for continued care. [...] electronic medical record, andcommunicating with other health career development manager and/or carecoordination. IMPRESSION ----- 1. Burrows at 21w 6d gestational age. 2. The amniotic fluid measurement is within normal limits. 3. On transvaginal imaging the cervix is 2.4 cm and appears closed. us Amilcar Dickerson MD [facility] US ORDERABLES Edited Result - Final documented in this encounter Visit Diagnoses Diagnosis Short cervix affecting - Primary Cervical shortening, unspecified as to episode of care or not applicable Short cervix affecting Cervical shortening, unspecified as to episode of care or not applicable documented in this encounter Care Teams Pan Helper Relationship Specialty Start Date End Date Mattie Vasques MD NPI: [id number] [place] [address] PCP - General Family Medicine 02/21/24 documented as of this encounter
--- OUTSIDE RECORDS SUMMARY | 2024-05-13 12:53 | XMS_ITS | Encounter Summary ---
Author Organization [place] Address [address] [place] [address] Care Team Providers Care Vibrating Screed Operator Name Role Phone Mattie Vasques MD [...] on filedocumented in this encounter Care Teams Vibrating Screed Operator Relationship Specialty Start Date End Date Mattie Vasques MD [facility] & [address] [address] PCP - General Family Medicine 02/21/24 documented as of this encounter
--- OUTSIDE RECORDS SUMMARY | 2024-05-13 12:53 | XMS_ITS | Data Portability ---
Author Organization [facility] Address [address] [place] [phone] Assessment No assessment recorded. Plan of Treatment [...] By Organization Details Last Modified Time 04/06/2021 [id number] take invermectin 3 mg on days 1 & 2 & 8, call if not better, clean apt as directed by internet eulalia Not available 04/06/2021 19:36:28 Reason for Referral None Reported. Results Created Date Observation Date Name Description Value Unit Range Abnormal Flag Note LastModifiedBy Organization Detail LastModifiedTime 04/21/2004/21/2021 pap, LB + HR HPV HPV type 16 positi ve negati ve abnormal Not Available [facility] [address], [place], [address], 04/26/2021 13:08:30 04/21/20 21 04/21/2021 pap, LB + HR HPV cytology unsati sfacto ry abnormal Not Available Not Available 14:20:46 Result Notes None recorded. Problems Name Problem SNOMED Code Status Onset Date Resolution Date Notes Provider Name and Address Organization Details Recorded Time Polyp of cervix 23823027 Active 021 Radha Conway, MUSA [address] [place], [address] , [facility] 04/21/2021 18:31:23 Problem Notes None recorded. Procedures Surgical History Date Name Laterality Status Provider Name and Address Organization Details Recorded Time IUD Removal completed Radha Conway NP [address] [place], [address], [facility] 04/21/2021 17:32:55 Imaging Results None recorded. Procedure Notes None recorded. Medical Equipment None Reported. Allergies No known drug allergies Medications Not known to be on any medication Vitals Date Recorded Body weight Provider Name an d Address Organization Details Last Updated DateTime 04/06/2021 49260.71 g Phill Lockwood [address] [place], [address] 04/06/2021 19:32:47 Date Recorded Body height Body mass index (BMI) Body weight Heart rate Systolic blood pressure Diastolic blood pressure Provider Name and Address Organization Details Last Updated DateTime 148.59 cm 23.7 kg/m2 73417.2 8 g 78 /min 104 mm[Hg] 67 mm[Hg] Radha Conway NP [address] [place], [address] 14:45:32 Social History None recorded. Functional Status [...] Diagnosis/Indication Diagnosis SNOMED-CT Code Diagnosis ICD10 Code 37311 MD [facility] [address] [place] [address] 04/06/2021 18:05:08 04/06/2021 19:07:53 Pruritic disorder 712690444 L29.9 [id number] Radha Conway NP [place] [facility] [address] [facility] [place] [address] 04/21/2021 14:36:36 04/21/2021 15:22:32 Irregular periods 42662846 N92.6 Polyp of cervix 19358397 N84.1 Removal of intrauterine device 51611181 Z30.432 Screening for malignant neoplasm of cervix 817539630 Z12.4 Health Concerns Section Related Observation LastModified [...] NKA, not PG Tulio Jimenez MD [address] [place], [address], [facility] [employer] 04/06/2021 19:36:48 04/21/2021 text/html HPI Notes: 36 [...] headache, dry skin. Radha Conway NP [address] [facility] [place], [address], [facility] [employer] 04/21/2021 18:31:28 OBGyn Episode No OBEpisode recorded.
--- OUTSIDE RECORDS SUMMARY | 2024-05-13 12:53 | XMS_ITS | Encounter Summary ---
Author Organization [place] Address [address] [place] [address] Care Team Providers Care Cyberathlete Name Role Phone Mattie Vasques MD Primary [...] on filedocumented in this encounter Care Teams Cyberathlete Relationship Specialty Start Date End Date Mattie Vasques MD [facility] & [address] [address] PCP - General Family Medicine 02/21/24 documented as of this encounter
--- OUTSIDE RECORDS SUMMARY | 2024-05-13 12:53 | XMS_ITS | Encounter Summary ---
Author Organization [place] Address [address] [place] [address] Care Team Providers Care Septic Tank Installer Name Role Phone Mattie Vasques MD Primary Care Provider + Reason for Referral * Diagnostic Imaging Ultrasound (Routine) - Pending Review Specialty Diagnoses / Procedures Referred By Tiffanyac t Referred To Contact Radiology. Diagnoses related condition, antepartum Procedures MFM US OB Transvaginal Anna William MD [place] [id number] Phone: tel: fax: Referral ID Status Reason Start Date Expiration Date V isits Requested Visits Authorized [id number] Pending Review 02/21/2024 02/20/2025 1 1 Reason for Visit * Diagnostic Imaging Ultrasound (Routine) - Pending Review Specialty Diagnoses / Procedures Referred By Contac t Referred To Contact Radiology. Diagnoses related condition, antepartum Procedures MFM US OB Transvaginal Anna William MD [facility] [address] [place] [address] Phone: tel: fax: Referral ID Status Reason Start Date Expiration Date V isits Requested Visits Authorized [id number] Pending Review 02/21/2024 02/20/2025 1 1 Encounter Details Date Type Department Care Team (Latest Contact Info) Description 02/26/2024 8:45 AM CDT - 02/26/2024 11:59 PM CDT Hospital Encounter [facility] Maternal Medicine Center [place] [address] [place] [address] Amilcar Dickerson MD [address] [place] [address] related condition, antepartum Discharge Disposition: Home or [...] Procedure Name Priority Date/Time Associated Diagnosis Comments [facility] US OB TRANSVAGINAL Routine 02/26/2024 9:43 AM CDT related condition, antepartum documented in this encounter Results * [facility] US OB Transvaginal (02/26/2024 9:43 [...] ? Study Date: ??02/26/2024 8:56am Pat. NO: ??[id number] ?Referring ??MD: ANNA WILLIAM Site: ? Day Care Assistant: Jillian Dias RDMS : ??1985 ?Age: ?? [...] CL assessment until 24 0/7 weeks with [facility] in 1 week and at [facility] in 2 weeks. Continue with vaginal progesterone. Procedure Note Amilcar Dickerson MD - 02/27/2024 Cx TV ----- Pat. Name: JOSE SMITH Study Date: 02/26/2024 8:56am Pat. NO: [id number] Referring MD: ANNA WILLIAM Site: Day Care Assistant: Jillian Dias RDMS : 1985 Age: 38 [...] CL assessment until 24 0/7 weeks with [facility] in 1week and at [facility] in 2 weeks. Continue with vaginal progesterone. IMPRESSION ----- This is an active single fetus with behavior appropriate for gestationalage at 19w5d, with history of 3 term births, 4 first trimester Sab and onesecond trimester loss after trauma and bleeding. Normal amniotic fluid volume is measured. Transabdominal and transvaginal views of the cervix and the cervicallength were obtained. us Anna William MD [facility] US ORDERABLES Edit ed Result - Final documented in this encounter Visit Diagnoses Diagnosis related condition, antepartum documented in this encounter Care Teams Septic Tank Installer Relationship Specialty Start Date End Date Mattie Vasques MD [facility] & [address] [address] PCP - General Family Medicine 02/21/24 documented as of this encounter
--- NOTE | 2024-05-13 13:00 | CRLHL7_ITS ---
For Patients: As a result of the Century Cures Act, medical imaging exams and procedure reports are released immediately into your electronic medical record. You may view this report before your referring provider. If you have questions, please contact your health care provider. OB ULTRASOUND FOLLOWUP, 05/13/2024 CLINICAL HISTORY: Uterine size/date discrepancy. TECHNIQUE: Transabdominal. COMPARISON: 03/12/2024, 02/26/2024. FINDINGS: FAUSTO by LMP: 07/17/2024. GA: 30 weeks 5 days. CERVIX: Not visualized. POSITIONING: Breech. AMNIOTIC FLUID: 7.3 cm. PLACENTA: Technique: TA. PLACENTA POSITION: Anterior. DOPPLERS: heart rate: 138 bpm. BIOMETRY: BDP: 8.3 cm, 33 weeks 2 days. 96% HC: 30.2 cm, 33 weeks 4 days. 87% AC: 28.1 cm, 32 weeks 1 day. 85% FL: 5.7 cm, 30 weeks 0 days. 19% FL/AC Ratio: 20.37% HC/AC Ratio: 1.07. EFW: 1830 g, 4 lb 1 oz. age by this US: 32 weeks 2 days. FAUSTO by this US: 07/06/2024. Percentile by FAUSTO: 73% IMPRESSION: Estimated weight is at the 73rd percentile. Varghese Riggs M.D. Body/Diagnostic Radiologist [email or web address] Transcribed: 9:12 am DW/Dictated by: Varghese Riggs MD @ 05/14/2024 8:19:00 AM (Electronically Signed)
== END 2024-05-13 12:51 | disposition home or self-care (01) ==
LOC: US 12:51
PROVIDERS: PCP Family Medicine; Visit Provider Obstetrics & Gynecology
DX: O26.843 Uterine size-date discrepancy, third trimester (principal); Z3A.32 32 weeks gestation of pregnancy
CPT/HCPCS: 76816; T1013

== ENCOUNTER 2024-06-17 14:49 | Outpatient (CLI) | payer OTHER, SELFPAY ==
--- OUTSIDE RECORDS SUMMARY | 2024-06-17 14:51 | XMS_ITS | Referral Summary ---
Author Organization [place] Address [address] [place] [address] Care Team Providers Care Gis Software Engineer Name Role Phone Mattie Vasques MD Primary Care Provider + Amilcar Dickerson MD Unavailable [phone] Social History Tobacco Use Types Packs/Day Years Used Date Smoking Tobacco: Never Assessed Estimated Date of Delivery Comme nts Yes 07/17/2024 Based on Ultraso und Sex and Gender Information Value Date Recorded Sex Assigned at Not on file Legal Sex Female 3:22 PM CDT Gender Identity Not on file Sexual Orientation Not on file Plan of Treatment Not on file Insurance [employer] Care Teams Gis Software Engineer Relationship Specialty Start Date End Date Mattie Vasques MD [facility] [address] [place] [address] PCP - General Family Medicine 02/21/24 Amilcar Dickerson MD [address] [place] [address] Assigned OBGYN Provider 04/01/24
--- OUTSIDE RECORDS SUMMARY | 2024-06-17 14:51 | XMS_ITS | Clinical Summary ---
Author Organization [place] Address [address] [place] [address] Care Team Providers Care Resident Program Specialist Name Role Phone Mattie Vasques MD Primary Care Provider + Amilcar Dickerson MD Unavailable [phone] Social History Tobacco Use Types Packs/Day Years [...] - Risk pregna nt 1-dose series) 05/22/2024 GROUP B STREP SCREENING 06/19/2024 HPV IMMUNIZATION Aged Out No longer e [...] on patient's age to complete this topic Insurance [employer] Care Teams Resident Program Specialist Relationship Specialty Start Date End Date Mattie Vasques MD [facility] & [address] [address] PCP - General Family Medicine 02/21/24 Amilcar Dickerson MD [address] [place] [phone] Assigned OBGYN Provider 04/01/24
--- OUTSIDE RECORDS SUMMARY | 2024-06-17 14:51 | XMS_ITS | Encounter Summary ---
Author Organization [place] Address [facility] [place] [address] Care Team Providers Care Senior Publications Specialist Name Role Phone Mattie Vasques MD Primary Care Provider + Reason for Referral * Diagnostic Imaging Ultrasound (Routine) - Pending Review Specialty Diagnoses / Procedures Referred By Contac t Referred To Contact Radiology. Diagnoses Short cervix affecting Procedures MFM US OB Transvaginal Vicki Love MD [address] [place] [address] Phone: tel: fax: Referral ID Status Reason Start Date Expiration Date V isits Requested Visits Authorized [id number] Pending Review 03/12/2024 03/12/2025 1 1 Reason for Visit * Reason Comments Ultrasound TV- Short Cervix Encounter Details Date Type Department Care Team (Late st Contact Info) Description 03/12/2024 4:00 PM CDT Office Visit [facility] M[facility] Medicine [facility] [place] [address] [facility] [address] [place] [address] Amilcar Dickerson MD [address] [place] [address] Khadra Ballesteros MD [address] [place] [address] Vicki Love MD [address] [place] [address] Short cervix affecting (Primary Dx); Multigravida of [...] Parra RN - 03/12/2024 4:00 PM CDT park interpreter used via IPAD during MFM appointment. Patient denies pain, contractions, leaking of fluid, or bleeding. SBAR given to MFM MD, see their note in Epic. documented in this encounter Plan of Treatment Scheduled Orders Name Type Priority Associated Diagnoses Orde r Schedule [facility] US OB Transvaginal Imaging Routine Short cervix affecting Expected: 03/26/2024 (Approximate), Expires: 01/09/2025 documented as of this encounter Visit Diagnoses Diagnosis Short cervix affecting - Primary Cervical shortening, unspecified as to episode of care or not applicable Multigravida of advanced maternal age in second trimester documented in this encounter Care Teams Senior Publications Specialist Relationship Specialty Start Date End Date Mattie Vasques MD [facility] & [address] [address] PCP - General Family Medicine 8/14/24 documented as of this encounter
--- OUTSIDE RECORDS SUMMARY | 2024-06-17 14:51 | XMS_ITS | Encounter Summary ---
Author Organization [place] Address [address] [place] [address] Care Team Providers Care Research Methodologist Name Role Phone Mattie Vasques MD Primary [...] on filedocumented in this encounter Care Teams Research Methodologist Relationship Specialty Start Date End Date Mattei Vasques MD [facility] & [address] [address] PCP - General Family Medicine 02/21/24 documented as of this encounter
--- OUTSIDE RECORDS SUMMARY | 2024-06-17 14:51 | XMS_ITS | Encounter Summary ---
Author Organization [facility] Address [address] [place] [id number] Care Team Providers Care Manager Medicaid Name Role Phone Mattie Vasques MD Primary Care Provider + Reason for Referral * Diagnostic Imaging Ultrasound (Routine) - Pending Review Specialty Diagnoses / Procedures Referred By Chele rm Referred To Contact Radiology. Diagnoses Short cervix affecting Procedures MF US OB Transvaginal Amilcar Dickerson MD [address] [address] Phone: tel: fax: Referral ID Status Reason Start Date Expiration Date V isits Requested Visits Authorized [id number] Pending Review 02/26/2024 02/25/2025 1 1 Reason for Visit * Diagnostic Imaging Ultrasound (Routine) - Pending Review Specialty Diagnoses / Procedures Referred By Chele rm Referred To Contact Radiology. Diagnoses Short cervix affecting Procedures MFM US OB Transvaginal Amilcar Dickerson MD [address] [place] [address] Phone: tel: fax: Referral ID Status Reason Start Date Expiration Date V isits Requested Visits Authorized [id number] Pending Review 02/26/2024 02/25/2025 1 1 Encounter Details Date Type Department Care Team (Latest Contact Info) Description 03/12/2024 3:25 PM CDT - 03/12/2024 11:59 PM CDT Hospital Encounter [facility] [place] [address] [place] [address] Amilcar Dickerson MD [address] [place] [address] Khadra Ballesteros MD [address] [place] [address] Short cervix affecting Discharge Disposition: [...] Procedure Name Priority Date/Time Associated Diagnosis Comments [facility] US OB TRANSVAGINAL Routine 03/12/2024 3:57 PM CDT Short cervix affecting documented in this encounter Results * [facility] US OB Transvaginal (03/12/2024 3:57 PM CDT) Anatomical Region Laterality Modality Ultrasound 03/12/2024 3:32 PM CDT Impressions 03/12/2024 4:48 PM CDT IMPRESSION ----- 1. Burrows at 21w 6d gestational age. 2. The amniotic fluid measurement is within normal limits. 3. On transvaginal imaging the cervix is 2.4 cm and appears closed. Narrative 03/12/2024 4:48 PM CDT Cx TV ----- Pat. Name: JOSE SMITH Study Date: 03/12/2024 3:32pm Pat. NO: [id number] Referring MD: WANDY COMBS Site: Night Patrol Inspector: Nadia Friend RDMS : 1985 Age: 38 ----- INDICATION ----- Short cervix METHOD ----- Transabdominal and transvaginal ultrasound examination. View: Sufficient ----- Burrows . Number of fetuses: 1 DATING ----- Date Details Gest. age FAUSTO LMP 10/19/2023 20 w + 5 d 07/25/2024 Previous U/S 12/13/2023 GA, GA 9 w + 0 d 21 w + 6 d 07/17/2024 Assigned dating based on ultrasound (GA), selected on 02/26/2024 21 w + 6 d 07/17/2024 GENERAL EVALUATION ----- Cardiac activity present. FHR 135 bpm. movements: visualized. Presentation: cephalic Placenta: Anterior Umbilical cord: previously studied Amniotic fluid: Amount of AF: normal. MVP 5.7 cm MATERNAL STRUCTURES ----- Cervix Normal Appearance: Appears closed. Approach - Transvaginal: Cervical length 24.3 mm [...] length surveillance as previously recommended, alternating between [facility] and [facility]. Return to primary provider for continued [...] medical record, and communicating with other health care associate and/or care coordination. Procedure Note Amilcar Dickerson MD / Vicki Love MD - 03/14/2024 Cx TV ----- Pat. Name: JOSE SMITH Study Date: 03/12/2024 3:32pm Pat. NO: [id number] Referring MD: WANDY COMBS Site: Night Patrol Inspector: Nadia Friend RDMS : 1985 Age: 38 [...] She works 8 hrs per day, has [employer] and does not do any heavy lifting. We reviewed that she cancontinue this work schedule and also reviewed that bed rest is not recommended. All questions answered atthis time. Plan: - Continue weekly cervical length surveillance as previously recommended,alternating between [facility] and [facility]. Return to primary provider for continued [...] electronic medical record, andcommunicating with other health care associate and/or carecoordination. IMPRESSION ----- 1. Burrows at 21w 6d gestational age. 2. The amniotic fluid measurement is within normal limits. 3. On transvaginal imaging the cervix is 2.4 cm and appears closed. us Amilcar Dickerson MD [facility] US ORDERABLES Edited Result - Final documented in this encounter Visit Diagnoses Diagnosis Short cervix affecting Cervical shortening, unspecified as to episode of care or not applicable documented in this encounter Care Teams Manager Medicaid Relationship Specialty Start Date End Date Mattie Vasques MD [facility] & [address] [address] PCP - General Family Medicine 02/21/24 documented as of this encounter
[2024-06-18 14:01] LABS: Strep B DNA Probe Negative (Negative)
[2024-06-18 14:44] LABS: Strep B Susceptibility Needed? No
== END 2024-06-17 14:50 | disposition home or self-care (01) ==
LOC: NFLDREF 14:49
PROVIDERS: PCP Family Medicine; Visit Provider Obstetrics & Gynecology
DX: Z34.83 Encounter for supervision of other normal pregnancy, third trimester (principal)
CPT/HCPCS: 87081; 87653

== ENCOUNTER 2024-07-11 05:56 | Inpatient (IN) | payer OTHER, SELFPAY ==
[2024-07-11] VITALS (32 sets, daily range): BP systolic 91–133; BP diastolic 44–89; PULSE 60–100; RESP 16–18; TEMP 36.3–36.9; O2SAT 98–100; BMI 29.6
[2024-07-11] MEDS: LACTATED RINGERS 1000 ML 1,000 ML 1200 ML IV (06:20)
[2024-07-11 06:32] LABS: Basophils Absolute Auto 0.01 K/uL (0.00-0.30); Basophils Percent Auto 0.1 % (0.0-3.0); Eosinophils Absolute Auto 0.06 K/uL (0.00-0.50); Eosinophils Percent Auto 0.8 % (0.0-7.0); Hematocrit 35.6 % (33.0-51.0); Hemoglobin* 11.8 gm/dL (12.0-16.0); Immature Granulocytes Abs Auto 0.06 K/uL (0.00-0.30); Immature Granulocytes Pct Auto 0.8 %; Lymphocytes Absolute Auto 2.99 K/uL (0.90-2.90); Lymphocytes Percent Auto 37.8 % (20-44); Mean Corpuscular HGB Conc 33 gm/dL (32-36); Mean Corpuscular Hemoglobin 30 pg (26-34); Mean Corpuscular Volume 90 fL (80-100); Monocytes Percent Auto 4.9 % (0.0-11.0); Neutrophils Percent Auto 55.6 % (42.0-72.0); Platelet Count* 227 K/uL (140-440); RDW Coefficient of Variation % 14.3 % (11.5-15.5); Red Blood Count 3.94 m/uL (4.00-5.20); White Blood Count* 7.91 K/uL (4.50-11.00)
[2024-07-11 06:34] LABS: Slide Review Reflex No
--- NOTE | 2024-07-11 07:06 | P.PCN_ITS ---
Procedure Note Time Seen by Provider: 08:33 Date Seen: 07/11/24 Date of procedure: 07/11/24 Will [facility] bill your pro fee for this procedure?: Yes Procedure: virtual assistant for advertisers op note: Preoperative diagnosis: 39-year-old at 39w2d gestation Breech presentation Desires repeat low transverse section Undesired fertility Postoperative diagnosis: Same Procedure: 1. Repeat low transverse section 2. Bilateral salpingectomy Operative note: I was asked to assist Dr. Anna William with the patient's surgery. I aided in dissection, visualization, and obtaining hemostasis. Please see Dr. William's note for complete details.
--- NOTE | 2024-07-11 07:06 | W.PM.H&PU ---
History & Physical Update History & Physical Update H&P Reviewed and patient assessed: No changes noted
--- NOTE | 2024-07-11 07:26 | P.OBHP_ITS ---
OB - H&P: HPI History of Present Illness Chief complaint: Maternity : 8 Para: 3 Narrative: Jayde Arellano is a 39 year old female at 39 weeks for repeat and surgical sterilization. is complicated by advanced maternal age, short cervix, and anemia. She has had persistent breech malpresentation. Jayde is feeling well today with no acute concerns. She is excited to be baby boy. She notes some irregular Colbert Johnston contractions, but nothing that is regular/painful. No vaginal bleeding or leaking of fluids. Endorses active movement. She does not suspect any large movements to represent conversion to cephalic. Specific Issues/Plans G 8 P [phone] Partner: Chuy. Has 3 boys at home: Zachery Thomas Angel. Baby: Edgar Vera Jr. [place]er speaking # History of due to breech presentation. We do not have these records, she delivered in [facility]. Reports 2 successful deliveries, also in [facility]. # Breech at 38 6/7 weeks # History of recurrent miscarriage. # Advanced maternal age Maternity 21: Low risk, male sex [x] [facility] MFM consult and level 2 -referral placed 02/06 [x] 32 week growth: EFW at 73%ile # Short cervix on level 2 US - 14mm [x] vaginal progesterone - continue until 36 weeks per MFM - last US 02/25 w cervical length of 16.9mm - 03/06 cervical length 14mm - 03/12 (at MFM) cervical length: 24.3 (and cleared to work!) - 03/20 (NFLD): 03/20/24 23mm [x] no further TVUS required # History of abnormal Pap smear. LSIL positive HPV April 2023. Colposcopy May 2023. CIN1 Recommendation to repeat Pap in 1 year. Will need Pap. # Elevated PHQ in LEWIS scores. Patient open to seeing a therapist. Will place referral. Declines medication management at this time. * Repeat at 32 weeks: LEWIS 1, PHQ 2 # Macrosomia. Vaginal delivery of 10 lb baby in 2010. 32 week growth US per MFM: as below, EFW 73% # Desires permanent sterilization after the of this child * Federal & internal consents signed 05/13 (has private insurance, considering applying for Medicaid so signed just in case) #HepB non-immune, low risk and declined immunization # Anemia, with Hb 10.2 on 04/24. * Begin ferrous sulfate 650 g QOD * Repeat Hb at 34 weeks 06/05/2024: 11.4 #Martial distress - psychology placed on 05/13, follow up on mood and couples counseling progress Imagin05/13/24 = 30 5/7 weeks: Breech, BDP: 96%, HC: 87%, AC:. 85%m FL: 19%, Perc entile by FAUSTO: 73% Covid: Not vaccinated. Recommended. Declined. FLU: 04/22/24 TDAP: 05/13/24 RSV: 06/05/2024 PFSH PFSH Medical History AMA (advanced maternal age) multigravida 35+ ?O09.529 - Supervision of elderly multigravida, unspecified trimester (ICD- 10) Anxiety ?F41.9 - Anxiety disorder, unspecified (ICD-10) Eczema ?L30.9 - Dermatitis, unspecified (ICD-10) Cervical polyp (04/21/21) ?N84.1 - Polyp of cervix uteri (ICD-10) History of abnormal cervical Pap smear ?Z87.42 - Personal history of other diseases of the female genital tract (ICD-10) History of recurrent miscarriages ?N96 - Recurrent loss (ICD-10) [place] speaking patient History of vaginal delivery Surgical History History of section (2004) ?Z98.891 - History of uterine scar from previous surgery (ICD-10) History of colposcopy (05/15/23) ?Z98.890 - Other specified postprocedural states (ICD-10) History of loop electrical excision procedure (LEEP) (08/27/21) ?Z98.890 - Other specified postprocedural states (ICD-10) H/O dilation and curettage ?Z98.890 - Other specified postprocedural states (ICD-10) Family History Mother High blood pressure Son Heart abnormality Social History Narrative: , [facility], 3 kids, [place]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 Lifetime nonsmoker Does not drink alcohol Does not exercise on regular basis What is your current living situation?: I presently have a place to live Problems where you live: no known problems In the past 12 months, utilities in danger of being shut off: no In past 12 months, lack of transportation kept you from medical appts, meetings, work, or getting things needed for daily living: no In the past 12 mos, have been you worried that your food would run out before you had money to buy more?: never true In the past 12 mos, the food you bought just didn't last and you didn't have money to buy more?: never true Smoking Status: Never smoker How often do you have a drink containing alcohol: never AUDIT-C Alcohol total score: 0 Non-prescribed substance use: denies use How often does anyone, including family, friends and others, physically hurt you : never How often does anyone, including family, friends and others, insult or talk down to you: never How often does anyone, including family, friends and others, threaten you with harm: never How often does anyone, including family, friends and others, scream or curse at you: never service: No Meds Home Medications and Allergies Home Medications ?Medication ?Instructions ?Recorded ?Confirmed ?Type docosahexaenoic acid 200 mg 200 mg PO DAILY 12/13/23 07/11/24 History capsule ( DHA) calcium carbonate (Tums) 200 mg PO BID 05/23/24 07/11/24 History Allergies Allergy/AdvReac Type Severity Reaction Status Date / Time No Known Drug Allergies Allergy Verified 07/09/24 13:16 OB - H&P: Exam Physical Exam: Vital signs: Temp Pulse Resp BP Pulse Ox 97.8 F 68 16 118/69 98 07/11/24 06:34 07/11/24 06:26 07/11/24 06:34 07/11/24 06:26 07/11/24 06:27 Narrative: General: Alert and oriented, no acute distress Psych: Appropriate mood and affect Abdomen: Gravid. Nontender. Transabdominal ultrasound: Kevin breech malpresentation is confirmed, back to maternal right NST: Reactive. Baseline of 120 beats per minute, moderate variability, accelerations present, decelerations negative. [place]: June about every 6 minutes OB - Results Labs Labs: Short CBC 07/11/24 Range/Units 06:20 WBC 7.91 (4.50-11.00) K/uL Hgb 11.8 L (12.0-16.0) gm/dL Hct 35.6 (33.0-51.0) % Plt Count 227 (140-440) K/uL Assessment and Plan Assessment and plan (1) Breech position of fetus: Status: Acute (2) Interpersonal relationship problem without mental disorder: Status: Acute (3) Anemia affecting : Status: Acute (4) Previous delivery affecting : Status: Acute (5) Cervical shortening: Status: Acute (6) Advanced maternal age (AMA) in : Status: Acute Plan Jayde is a 39-year-old admitted for scheduled repeat in the setting of breech malpresentation. is otherwise complicated by advanced maternal age, shortened cervix, history of , anemia. On arrival, breech presentation was again confirmed. Patient has been previously consented for repeat and bilateral salpingectomy versus tubal ligation. She has no questions or concerns. She affirms desire to proceed with surgical sterilization. Plan to proceed to the operating room. Spinal for anesthesia. Ancef for surgical prophylaxis. Blood type A positive, GBS negative. Peds to attend delivery in the setting of breech malpresentation.
[2024-07-11] MEDS: CEFAZOLIN 2 GM INJ IVP (07:52)
[2024-07-11] MEDS: LACTATED RINGERS 1000 ML 1,000 ML 125 ML IV (07:57)
[2024-07-11] MEDS: KETOROLAC 30 MG/ML inj IVP ×3 (08:36→20:16)
--- NOTE | 2024-07-11 08:44 | PM.OBPRCCS ---
Procedure Date of procedure: 07/11/24 Pre-op diagnosis: 39 weeks, breech malpresentation, AMA, prior Post-op diagnosis: same Procedure Done: Global Will [facility] bill your pro fee for this procedure?: Yes Blood Loss Measurement Type: QBL (400) Bakri Used: No IV fluids (mL): 1,500 Urine Output (mL): 50 Urine Output Comment: Clear, yellow Surgeon: Kurtis William MD Mental Health Clinician: Elayne Casper MD Anesthesia Type: Spinal Findings: Prior midline vertical incision with associated keloid Mild adhesive disease between the omentum and superior anterior abdominal wall Live-born male in jesús breech presentation Unremarkable uterus, bilateral fallopian tubes and ovaries Procedure Name: Repeat , bilateral salpingectomy Procedure Description: Patient was taken to the operating room with IV running. She received cefazolin in preoperative prophylaxis. Spinal anesthesia was administered. Fitzgerald catheter was inserted. She was prepped and draped in the usual sterile fashion. Anesthesia was tested and found to be adequate. A low-transverse skin incision was made with a scalpel and carried through to the underlying layer of fascia with the scalpel. The subcutaneous fat was dissected off the underlying fascia with Bovie and blunt dissection. The fascia was nicked in the midline with a scalpel, and this incision was extended laterally with scissors. The rectus muscles were in the midline. The rectus muscles/fascia were noted to be adhesed in the midline, secondary to prior midline vertical incision. This was taken down with a combination of blunt and sharp dissection. We did encounter her prior fascial closure, where a single interrupted suture was removed to facilitate entry. Peritoneum was identified and entered bluntly. Bovie was used to widen this opening laterally. Davis O retractor was inserted and tightened down, providing excellent visualization of the lower uterine segment. The bladder reflection was found to be advanced along the lower uterine segment. A bladder flap was created with a combination of sharp and blunt dissection. Low-transverse uterine incision was made with a scalpel. Incision was widened bluntly. The 's breech was grasped through the hysterotomy and elevated to the hysterotomy. The breech was rotated to back up, where the legs and trunk delivered with the aid of fundal pressure. The arms were delivered with rotation to the anterior position, then gently swept out with Lovset maneuver. The head delivered with fundal pressure and flexion of the neck by applying gentle pressure to the maxilla. No nuchal cord was noted. Vigorous cry was noted immediately. Cord was clamped and cut after 30 seconds. Infant was handed off to attending nurses and WINCHMAN/CRANE OPERATOR. The placenta was delivered with gentle traction on the cord. The uterus was cleaned of all clots and debris with the dry lap pad, exteriorized. The hysterotomy was reapproximated with 0 Vicryl in a running, locked fashion. Second layer of the same suture was used in imbricating fashion to obtain hemostasis. Uterine tone was noted to be excellent throughout, with aid of IV pitocin. Excellent hemostasis was noted. The adnexa were examined and noted to be normal in appearance. Jayde affirmed verbally her desire to proceed with sterilization. The right fallopian tube and ovary were inspected and found to be unremarkable. The fallopian tube was elevated with two Babcocks, and sequentially ligated and transected from the mesosalpinx using the Ligasure cautery device. We proceeded from the fimbriated end, lateral to medial, and the tube was amputated at the right uterine cornua. Specimen was handed off. The same procedure was performed on the left. Both fallopian tubes were sent for pathologic evaluation. Excellent hemostasis was noted. Uterus was reintroduced to the abdominal cavity. The cul-de-sac and gutters were cleansed with dampened laparotomy sponge, removing any further clots and debris. The Davis O retractor was removed. The hysterotomy was reexamined and found to be hemostatic. The rectus muscles were examined and found to be hemostatic. The fascia was reapproximated with 0 Vicryl in a running fashion. Subcutaneous fat was irrigated and Bovie used on oozing vessels. The subcutaneous fat was reapproximated with 2 0 vicryl suture in continuous fashion. The skin was closed with a subcuticular stitch of 3-0 monocryl. Surgical glue was applied above this. Patient tolerated procedure well was taken to recovery area in stable condition. Surgical debrief was completed. details: - Liveborn male fetus - weight: 3585g - APGARs were 9 and 9 at 1 and 5 minutes respectively Complications: None Pathology: specimen obtained, sent to pathology Surgery Debrief Performed: Yes Condition: stable Disposition: floor [place] Infant total score - 1 minute: 9 total score - 5 minute: 9
--- NOTE | 2024-07-11 09:05 | W.ANESCHARGE ---
Anesthesia Charges Start Date/Time Anesthesia Start Date: 07/11/24 Anesthesia Start Time: 07:29 Stop Date/Time Anesthesia Stop Date: 07/11/24 Anesthesia Stop Time: 08:58
--- NOTE | 2024-07-11 09:06 | W.PM.NB ---
Nerve Block Nerve Block Time Seen by Provider: 08:48 Date Seen: 07/11/24 Type of block requested by surgeon for post-operative analgesia: TAP Side: bilateral Time out performed: Yes Verification of patient name: Yes Verification of date of : Yes Site marking: site marked Name of person performing procedure: Brennen Estrada Continuous monitoring Was continuous monitoring of O2 sat, B/P, cardiac technologist, recorded every 15 minutes?: Yes Procedure Checklist: sterile prep, needles and gloves Ultrasound guided. Images saved: Yes Medications given in 5ml increments after negative aspiration: Marcaine %: 0.25 mL: 30 Needle gauge: 20 and Exparel mL: 10 Needle gauge: 20 Patient tolerated procedure well: Yes Additional comments: Injected in 5 mL increments after negative aspiration Block Charges Block Charge (with Pro Fee): TAP Bilateral Use of Ultrasound Machine for Block: Yes- US Guidance/pain block
[2024-07-12] VITALS (11 sets, daily range): BP systolic 90–129; BP diastolic 57–76; PULSE 65–80; RESP 16–18; TEMP 36.3–36.8; O2SAT 97–100
[2024-07-12] MEDS: KETOROLAC 30 MG/ML inj IVP ×3 (02:42→17:04)
[2024-07-12 06:34] LABS: Hemoglobin* 9.9 gm/dL (12.0-16.0)
--- NOTE | 2024-07-12 07:42 | PM.OBPNVD1 ---
OB - PN:Subj Subjective Date Seen: 07/12/24 Narrative: Jayde is a 39 year old who was admitted for scheduled repeat for breech presentation and proceeded to have a ? with a bilateral tubal ligation.The patient feels well.? The pain is well controlled with current medications.? She has no new complaints.? Urinary output is adequate and she is voiding without difficulty.? Has a good appetite, is tolerating a general diet, is passing flatus, and has not had a bowel movement.? Has small amount of rubra lochia.?She has noted some gushing after lying down for a while. NO large clots. She is ambulating well. She is and reports it is going well.? Partner was not present for visit with me. Air Tank Assembler was present for the visit. OB - PN: Obj Exam Physical Exam: Vital signs: Temp Pulse Resp BP Pulse Ox O2 Del Method 98.1 F 73 18 129/76 100 Room Air 07/12/24 03:01 07/12/24 03:01 07/12/24 06:34 07/12/24 03:01 07/12/24 03:01 07/12/24 03:01 Narrative: GENERAL APPEARANCE:? normal affect, alert, no distress MOOD:? appropriate CHEST:? clear to auscultation HEART:? regular rate and rhythm ABDOMEN:? soft, non-tender the uterine fundus is At Umbilicus, Midline and is appropriate for the stage of recovery. EXTREMITIES:? normal and minimal edema Incision: Surgical dressing intact with no discharge or erythema noted. OB - PN: Obj Data Labs Labs: Laboratory Results - last 24 hr 07/12/24 06:20 Hgb 9.9 L OB - PN: A/P Delivery Assessment and Plan (1) delivery delivered: Status: Acute (2) Anemia affecting : Status: Acute (3) Previous delivery affecting : Status: Acute (4) Advanced maternal age (AMA) in : Status: Acute (5) Nigerien speaking patient: Status: Acute Plan Comments: PP day #1 Routine care May see as desired Anticipate discharge 07/13/2024 Nursing to remove surgical dressing as appropriate.
[2024-07-12] MEDS: DOCUSATE SODIUM 100 MG CAPSULE PO (08:44)
[2024-07-12] MEDS: ACETAMINOPHEN 500 MG TABLET 1000 MG PO (11:39)
[2024-07-13 00:06] VITALS: BP 121/69; PULSE 76; RESP 16; TEMP 37.1
[2024-07-13 03:07] LABS: Rapid Plasma Reagin (RPR) Non Reactive (Non Reactive)
[2024-07-13] MEDS: IBUPROFEN 600 MG TABLET PO (07:38)
[2024-07-13] MEDS: DOCUSATE SODIUM 100 MG CAPSULE PO (07:39)
[2024-07-13 07:40] VITALS: BP 109/74; PULSE 91; RESP 17; TEMP 37.1; O2SAT 98
[2024-07-13] MEDS: ACETAMINOPHEN 500 MG TABLET 1000 MG PO (09:06)
[2024-07-13] MEDS: OXYCODONE 5 MG TABLET PO (09:09)
--- NOTE | 2024-07-13 11:08 | P.DS_ITS ---
DS: Providers Provider Date Seen: 07/13/24 Date of admission: 07/11/24 05:56 Primary care physician: Mattie Vasques MD Admitting Clinician: Anna William MD Consults: 07/11/24 06:31 Consult to Office Administrative Assistant [CONS] Routine Comment: Reason for Consult:: Epitaxial Reactor Operator Needed Attending Physician on discharge: Karin Jaimes MD Date of Discharge: 07/13/24 Exam Const: Vital Signs, click to edit/add: Vital Signs - 24 hr 07/12/24 16:50 07/13/24 00:06 07/13/24 07:40 Temperature 98.2 F 98.7 F 98.7 F Pulse Rate [Pulse Oximeter] 80 76 91 Respiratory Rate 17 16 17 Blood Pressure [Le ft Arm] 109/73 121/69 109/74 Pulse Oximetry 97 98 Oxygen Delivery Me thod Room Air Room Air Documenting provider has reviewed patient's vital signs: yes Common normals: no apparent distress and oriented x3 General appearance: cooperative and comfortable HENMT: Common normals: normocephalic Head and scalp: normocephalic Resp: Common normals: normal respiratory effort Cardio: Common normals: regular rate and regular rhythm Rate: regular rate Rhythm: regular rhythm GI: Common normals: soft to palpation and non-tender Inspection: normal to inspection and incision (no erythema or induration) Inspection of incision: healing well Palpation: soft Extremity: Common normals: normal to inspection and no pedal edema Neuro: Common normals: oriented x3 Psych: Common normals: affect normal OB - DS: Summary Hospital Course Hospital Course: The patient is a 39 year old G 8 P 4044 at 39 1/7 weeks gestation that was admitted to the [facility] on 07/11/24 for repeat section with bilateral salpingectomies for breech presentation and h/o prior . She had an uncomplicated delivery. She delivered a viable male infant. She is breast and bottle feeding. the patient has done well. Peripartum Data delivery method: Repeat Section Procedures: Procedures Operation Date: 07/11/24 07:15 Actual Procedure Side Surgeon p Repeat Section, Tubal Ligation Anna William MD Procedures: tubal ligation/salpingectomy complications: none Gender: Male Infant Discharge Plan: Home Status at Discharge Functional status at discharge: independent ambulation Overall status at discharge: patient is progressing back to baseline Time Spent with Patient Time attestation: Total time spent providing and/or coordinating discharge services: Time spent: Greater than 30 minutes Discharge Plan Discharge Disposition: Home, Self-Care Date of Admission: 07/11/24 05:56 Attending Provider on Discharge: Karin Jaimes Primary Care Provider: Mattie Vasques Condition: Stable Anticipated Discharge Date/Time: 07/13/24 11:14 Discharge Medications: New acetaminophen 500 mg Tablet 1,000 mg PO Q6H PRN (Reason: Pain) Qty: 100 0RF docusate sodium 100 mg Capsule 100 mg PO DAILY Qty: 30 0RF ibuprofen 600 mg Tablet 600 mg PO Q6H PRN (Reason: Pain) Qty: 30 0RF oxycodone 5 mg Tablet 5 - 10 mg PO Q6H PRN (Reason: Pain) Qty: 20 0RF Continued DHA 200 mg capsule 200 mg PO DAILY cholecalciferol (vitamin D3) 50 mcg (2,000 unit) capsule 50 mcg PO QDAY Qty: 60 2RF calcium carbonate [Tums] 200 mg calcium (500 mg) tablet,chewable 200 mg PO BID ferrous sulfate 325 mg (65 mg iron) tablet 650 mg PO Q OTHER DAY Qty: 60 0RF Discharge Orders: Discharge Order (Routine); Ordered 07/13/24 Ordered By: Karin Jaimes Patient Education: OB /Breast Feeding Activity Level: Activity as Tolerated Discharge Diet: Regular Follow Up Appointments: Mattie Vasques MD [Primary Care Provider] - Forms: [facility] Info Instructions
== END 2024-07-13 13:00 | disposition home or self-care (01) | DRG 784 ==
PROVIDERS: Admitting Provider Obstetrics & Gynecology; PCP Family Medicine; Visit Provider Obstetrics & Gynecology
PROC: 10D00Z1 Extraction of Products of Conception, Low, Open Approach (ICD-10-PCS; CPT 59514; principal; 2024-07-11 07:15)
DX: O32.1XX0 Maternal care for breech presentation, not applicable or unspecified (principal); O26.873 Cervical shortening, third trimester; O99.02 Anemia complicating childbirth; D64.9 Anemia, unspecified; Z3A.39 39 weeks gestation of pregnancy; Z37.0 Single live birth; Z30.2 Encounter for sterilization; G89.18 Other acute postprocedural pain; Z63.0 Problems in relationship with spouse or partner; Z60.3 Acculturation difficulty; Z78.9 Other specified health status; Z87.42 Personal history of other diseases of the female genital tract; N96 Recurrent pregnancy loss
CPT/HCPCS: 01961; 36415; 64488; 76942; 85018; 85025; 86592; 86850; 86900; 86901; 88302; T1013; A4314; A9270; J0665; J0666; J0690; J1100; J1885; J2274; J2371; J2405; J2590; J7120

== ENCOUNTER 2024-08-30 13:44 | Outpatient (CLI) | payer OTHER, SELFPAY ==
[2024-09-03 10:32] LABS: HPV Source Cervical; HPV, High Risk by TMA Not Detected
== END 2024-08-30 13:45 | disposition home or self-care (01) ==
PROVIDERS: PCP Family Medicine; Visit Provider Obstetrics & Gynecology
DX: Z12.4 Encounter for screening for malignant neoplasm of cervix (principal); Z39.2 Encounter for routine postpartum follow-up
CPT/HCPCS: 87624; 87625; 88141; 88142

== ENCOUNTER 2025-03-18 15:15 | Outpatient (CLI) | payer OTHER, SELFPAY | END 2025-03-18 15:16 | disposition home or self-care (01) | LOC: NFLDREF 03-24 08:19 | PROVIDERS: PCP Family Medicine; Referring Provider Family Medicine; Visit Provider Obstetrics & Gynecology | DX: R35.0 Frequency of micturition (principal); N39.0 Urinary tract infection, site not specified; R30.0 Dysuria; R63.5 Abnormal weight gain; R10.2 Pelvic and perineal pain; R14.0 Abdominal distension (gaseous); N92.6 Irregular menstruation, unspecified | CPT/HCPCS: 84443; 87086 ==

== ENCOUNTER 2025-03-19 16:49 | Outpatient (CLI) | payer OTHER, SELFPAY ==
--- NOTE | 2025-03-19 17:00 | CRLHL7_ITS ---
For Patients: As a result of the Century Cures Act, medical imaging exams and procedure reports are released immediately into your electronic medical record. You may view this report before your referring provider. If you have questions, please contact your health care provider. CLINICAL HISTORY: pelvic pain, abdominal bloating COMPARISON: None. TECHNIQUE: 2D hathaway-scale ultrasound. In addition, color Doppler and spectral Doppler analysis was performed of the pelvis using a transabdominal and transvaginal approach. Transvaginal imaging performed to better visualize the endometrial stripe and ovaries. FINDINGS: The uterus measures 8.2 x 4.0 x 5.7 cm. Uterine echotexture is heterogeneous. No fibroid. Endometrium is ill-defined and measures 12.1 millimeters. The right ovary measures 1.7 x 1.9 x 1.5 cm in size and the left ovary measures 2.0 x 2.2 x 1.4 cm. The ovaries demonstrate normal arterial and venous blood flow on color Doppler and spectral Doppler analysis. There are no suspicious fluid collections within the cul-de-sac. IMPRESSION: Normal ovaries. No excess pelvic free fluid or adnexal mass. Dictated by Eran Klein MD @ 03/20/2025 9:22:38 AM (Electronically Signed)
== END 2025-03-19 16:50 | disposition home or self-care (01) ==
LOC: US 16:50
PROVIDERS: PCP Family Medicine; Visit Provider Obstetrics & Gynecology
DX: R10.2 Pelvic and perineal pain (principal); R14.0 Abdominal distension (gaseous)
CPT/HCPCS: 76830; 76856; 93976; T1013